=== PATIENT | female | born 1975 | race African-American/Black ===

== ENCOUNTER 2016-04-25 12:22 | Emergency (ER) | payer OTHER ==
[~2016-04-25] VITALS: Ht 177.8 cm; Wt 130.0 kg
[~2016-04-25 12:22] MED LIST: LOSA25TA31 PO; STOO100T PO; TAMO20TA4 PO
[2016-04-25 12:25] VITALS: BP 139/68; PULSE 110; RESP 12; TEMP 99.5; O2SAT 98
--- NOTE | 2016-04-25 13:39 | PD ---
HPI Chief Complaint: Pain: Acute or Chronic Time Seen by Provider: 13:39 Travel History International Travel<30 days: No Contact w/Intl Traveler<30days: No Traveled to known affect area: No History of Present Illness HPI 40-year-old female with history of hypertension and rest cancer, status post left mastectomy with reconstruction in 2014, presents to emergency department for evaluation of acute onset redness, swelling, and pain of the left breast noted last night. Patient states that she has felt febrile today and mildly nauseous. Denies any injury. Had an appointment with Dr. Zambrano, her oncologist today but felt that she needed more emergent attention due to the worsening, fevers, and pain. She has had no chest congestion. No other recent illnesses. Patient has no other symptoms at this time to report [facility] Past Medical History Anemia: Yes Blood Disorders: No Cancer: Yes (LEFT BREAST) Cardiovascular Problems: Yes (HEART MURMER) Diabetes: No Diminished Hearing: No Endocrine: No Genitourinary: No Hepatitis: No Hiatal Hernia: No Hypertension: Yes Immune Disorder: No Musculoskeletal: No Neurologic: No Psychiatric: No Reproductive: No Respiratory: No Radiation Therapy: No (FINISHED IN AUGUST OF LAST YEAR 2013, 28 TREATMENTS) Sickle Cell Disease: Yes (TRAIT) Thyroid Disease: No ?: Not : 2 Para: 2 Past Surgical History Abdominal Surgery: No AICD: No Body Medical Devices: IUD-PARAGUARD , RIGHT AND LEFT BREAST IMPLANTS Cardiac Surgery: No Section: Yes (X 1) Ear Surgery: No Endocrine Surgery: No Eye Surgery: No Genitourinary Surgery: No Gynecologic Surgery: Yes (C SECTION) Joint Replacement: No Neurologic Surgery: No Oral Surgery: No Pacemaker: No Thoracic Surgery: Yes (LEFT BREAST MASTECTOMY, R BREAST REDUCTION, L BREAST RECON.) Other Surgery: Yes Social History Alcohol Use: Yes (OCCASSIONAL) Tobacco Use: No (quit 16 years ago) Substance Use: No Allergies-Medications (Allergen,Severity, Reaction): Coded Allergies: Dilaudid (Verified Adverse Reaction, Severe, Nausea/Vomiting, 04/25/16) Reported Meds & Prescriptions Reported Meds & Active Scripts Active Clindamycin (Clindamycin HCl) 300 Mg Cap 300 Mg PO Q6H 10 Days Reported Tamoxifen (Tamoxifen Citrate) 20 Mg Tab 20 Mg PO BID Cozaar (Losartan Potassium) 50 Mg Tab 50 Mg PO DAILY Review of Systems Except as stated in HPI: all other systems reviewed are Neg Physical Exam Narrative GENERAL: Well-nourished female patient, sitting in bed, in no acute distress SKIN: Warm and dry. Scarring on the left breast status post vasectomy. There is a 10 cm diameter area of erythema superior to where the anatomical nipple would be that is taut, warm to touch, very tender. HEAD: Atraumatic. Normocephalic. EYES: Pupils equal and round. No scleral icterus. No injection or drainage. ENT: No nasal bleeding or discharge. Mucous membranes pink and moist. NECK: Trachea midline. No JVD. CARDIOVASCULAR: Tachycardic rate and rhythm. No murmur appreciated. RESPIRATORY: No accessory muscle use. Clear to auscultation. Breath sounds equal bilaterally. GASTROINTESTINAL: Abdomen soft, non-tender, nondistended. Hepatic and splenic margins not palpable. MUSCULOSKELETAL: No obvious deformities. No clubbing. No cyanosis. No edema. NEUROLOGICAL: Awake and alert. No obvious cranial nerve deficits. Motor grossly within normal limits. Normal speech. PSYCHIATRIC: Appropriate mood and affect; insight and judgment normal. Data Data Last Documented VS Vital Signs Date Time Temp Pulse Resp B/P Pulse Ox O2 Delivery O2 Flow Rate FiO2 04/25/16 17:00 94 16 127/68 99 Room Air 04/25/16 12:25 99.5 Orders Complete Blood Count With Diff (04/25/16 13:38) Comprehensive Metabolic Panel (04/25/16 13:38) Lactic Acid Sepsis Protocol (04/25/16 13:38) Ckmb (Isoenzyme) Profile (04/25/16 13:38) Troponin I (04/25/16 13:38) Urinalysis - C+S If Indicated (04/25/16 13:38) Blood Culture (04/25/16 13:38) Chest, Single Ap (04/25/16 13:38) Ondansetron Odt (Zofran Odt) (04/25/16 14:15) Urine Culture (04/25/16 14:12) Us Breast Unilateral (04/25/16 ) CKMB (04/25/16 14:12) CKMB% (04/25/16 14:12) Clindamycin Inj (Cleocin Inj) (04/25/16 16:45) Blood Culture (04/25/16 16:58) Labs Laboratory Tests Test 04/25/16 14:12 White Blood Count 16.4 TH/MM3 Red Blood Count 4.99 MIL/MM3 Hemoglobin 12.3 GM/DL Hematocrit 40.0 % Mean Corpuscular Volume 80.3 FL Mean Corpuscular Hemoglobin 24.7 PG Mean Corpuscular Hemoglobin 30.8 % Concent Red Cell Distribution Width 17.3 % Platelet Count 281 TH/MM3 Mean Platelet Volume 8.1 FL Neutrophils (%) (Auto) 86.3 % Lymphocytes (%) (Auto) 9.1 % Monocytes (%) (Auto) 4.1 % Eosinophils (%) (Auto) 0.2 % Basophils (%) (Auto) 0.3 % Neutrophils # (Auto) 14.1 TH/MM3 Lymphocytes # (Auto) 1.5 TH/MM3 Monocytes # (Auto) 0.7 TH/MM3 Eosinophils # (Auto) 0.0 TH/MM3 Basophils # (Auto) 0.0 TH/MM3 CBC Comment AUTO DIFF Differential Comment AUTO DIFF CONFIRMED Platelet Estimate NORMAL Platelet Morphology Comment NORMAL Ovalocytes 1+ Urine Color YELLOW Urine Turbidity HAZY Urine pH 5.5 Urine Specific [place] 1.018 Urine Protein NEG mg/dL Urine Glucose (UA) NEG mg/dL Urine Ketones NEG mg/dL Urine Occult Blood TRACE Urine Nitrite NEG Urine Bilirubin NEG Urine Urobilinogen LESS THAN 2.0 MG/DL Urine Leukocyte Esterase LARGE Urine RBC 2 /hpf Urine WBC 13 /hpf Urine Squamous Epithelial 4 /hpf Cells Urine Transitional Epithelial 1 /hpf Cells Urine Bacteria OCC /hpf Microscopic Urinalysis Comment CATH-CULTURE IND Sodium Level 139 MEQ/L Potassium Level 3.4 MEQ/L Chloride Level 108 MEQ/L Carbon Dioxide Level 22.9 MEQ/L Anion Gap 8 MEQ/L Blood Urea Nitrogen 9 MG/DL Creatinine 0.64 MG/DL Estimat Glomerular Filtration 124 ML/MIN Rate Random Glucose 92 MG/DL Lactic Acid Level 1.9 mmol/L Calcium Level 9.0 MG/DL Total Bilirubin 0.2 MG/DL Aspartate Amino Transf 8 U/L (AST/SGOT) Alanine Aminotransferase 18 U/L (ALT/SGPT) Alkaline Phosphatase 62 U/L Total Creatine Kinase 245 U/L Creatine Kinase MB LESS THAN 0.5 NG/ML Creatine Kinase MB % 0.2 % Troponin I LESS THAN 0.02 NG/ML Total Protein 8.0 GM/DL Albumin 4.1 GM/DL MDM Medical Decision Making Medical Screen Exam Complete: Yes Emergency Medical Condition: Yes Medical Record Reviewed: Yes Differential Diagnosis Abscess versus cellulitis versus malignancy versus sepsis Narrative Course 40 year-old female presents to emergency department for evaluation of her left breast. Patient has history of malignancy and is status post mastectomy and reconstruction. The left breast does have area of erythema that is taut and tender to touch. Patient is tachycardic with a low-grade temperature. Workup was initiated in triage. Once a medical bed becomes available, patient will be transferred and care assumed by that provider. Scripts Clindamycin 300 Mg Tat102 Mg PO Q6H 10 Days Ref 0 Prov:Tisha Joseph 04/25/16 Condition: Stable Megan Douglas Apr 25, 2016 13:39
[2016-04-25] MEDS ORDERED: ONDANSETRON ODT 4 MG TAB PO ONE (14:15)
[2016-04-25 14:20] LABS: AUTOMATED NEUTROPHIL # 14.1 TH/MM3 (1.8-7.7); BASOPHIL % 0.3 % (0.0-2.0); EOSINOPHIL % 0.2 % (0.0-4.0); LYMPH % 9.1 % (9.0-44.0); LYMPHOCYTE # 1.5 TH/MM3 (1.0-4.8); MEAN CELL VOLUME 80.3 FL (80.0-100.0); MEAN CORPUSCULAR HEMOGLOBIN 24.7 PG (27.0-34.0); MEAN CORPUSCULAR HGB CONC 30.8 % (32.0-36.0); MONO % 4.1 % (0.0-8.0); NEUT % 86.3 % (16.0-70.0); PLATELET COUNT 281 TH/MM3 (150-450); RED BLOOD COUNT 4.99 MIL/MM3 (4.00-5.30); RED CELL DISTRIBUTION WIDTH 17.3 % (11.6-17.2); WHITE BLOOD COUNT 16.4 TH/MM3 (4.0-11.0)
[2016-04-25 14:21] LABS: HEMO FLAGS AUTO DIFF
[2016-04-25 14:23] LABS: BACTERIA, URINE OCC /hpf; BLOOD, URINE TRACE (NEG); GLUCOSE,URINE NEG (NEG); KETONE, URINE NEG (NEG); NITRITE,URINE NEG (NEG); PH, URINE 5.5 (5.0-8.5); SQUAMOUS EPITHELIAL CELL URINE 4 /hpf (0-5); TRANSITIONAL EPI CELLS, URINE 1 /hpf; URINE COLOR YELLOW (YELLW/STRAW)
[2016-04-25 14:24] LABS: COMMENT (UR) CATH-CULTURE IND; CULTURE IF INDICATED CATH CULTURE IND
[2016-04-25 14:30] VITALS: BP 135/65; PULSE 98; RESP 16; O2SAT 99
--- NOTE | 2016-04-25 14:30 | RADRPT ---
EXAM DATE/TIME: 04/25/2016 14:15 [facility] COMPARISON: CHEST SINGLE AP, December 07, 2013, 19:10. INDICATIONS : Fever, pain left anterior chest, nausea MEDICAL HISTORY : Carcinoma, breast. SURGICAL HISTORY : Mastectomy, left. section. ENCOUNTER: Initial ACUITY: 1 day PAIN SCORE: 5/10 LOCATION: Left chest FINDINGS: A single view of the chest demonstrates the lungs to be symmetrically aerated without evidence of mas s, infiltrate or effusion. The cardiomediastinal contours are unremarkable. Osseous structures are intact. CONCLUSION: Normal examination. Manolo Bahena MD on April 25, 2016 at 14:29 Board Certified Radiologist. This report was verified electronically.
[2016-04-25 14:37] LABS: ALT (GPT) 18 U/L (10-53); ANION GAP 8 MEQ/L (5-15); AST (GOT) 8 U/L (15-37); BICARBONATE 22.9 MEQ/L (21.0-32.0); CHLORIDE 108 MEQ/L (98-107); GLOMERULAR FILTRATION RATE 124 ML/MIN (>89); POTASSIUM 3.4 MEQ/L (3.5-5.1); SODIUM (NA) 139 MEQ/L (136-145)
[2016-04-25] MEDS ORDERED: COZA50TA PO (14:37)
[2016-04-25] MEDS ORDERED: TAMO20TA6 PO (14:37)
[2016-04-25 14:38] LABS: BLOOD UREA NITROGEN 9 MG/DL (7-18)
[2016-04-25 14:40] LABS: ALKALINE PHOSPHATASE 62 U/L (45-117); CREATINE KINASE 245 U/L (26-192); TOTAL BILIRUBIN ADULT 0.2 MG/DL (0.2-1.0)
--- NOTE | 2016-04-25 14:47 | PD ---
Physical Exam Date Seen by Provider: Apr 25, 2016 Time Seen by Provider: 14:42 Narrative 40-year-old female presents to the emergency department for evaluation of left breast pain and erythema that started this morning. She has also felt chills. Low-grade fever. Patient reports history of left breast cancer. She had a mastectomy done in February 2013 with reconstruction [place] [address] Payan. She takes tamoxifen and still follows up with her oncologist, Dr. Zambrano. She reports that this morning she woke up with left breast pain and erythema. She states this happened back in December and she had to be admitted with IV antibiotics. Patient also reports a history of hypertension and is currently on losartan. She denies any chest pain or other complaints. GENERAL: Well-developed well-nourished female patient, ambulatory. Temp of 99.5 79.5. SKIN: Warm and dry. Patient has erythema noted to the left breast which is thought and slightly tender to palpation. No obvious fluctuance. HEAD: Normocephalic. Atraumatic. EYES: No scleral icterus. No injection or drainage. NECK: Supple, trachea midline. No JVD or lymphadenopathy. CARDIOVASCULAR: Regular rate and rhythm without murmurs, gallops, or rubs. RESPIRATORY: Breath sounds equal bilaterally. No accessory muscle use. Lungs sounds are clear to auscultation. GASTROINTESTINAL: Abdomen soft, non-tender, nondistended. MUSCULOSKELETAL: No cyanosis, or edema. BACK: Nontender without obvious deformity. No CVA tenderness. Data Data Last Documented VS Vital Signs Date Time Temp Pulse Resp B/P Pulse Ox O2 Delivery O2 Flow Rate FiO2 04/25/16 14:30 98 16 135/65 99 Room Air 04/25/16 12:25 99.5 Orders Electrocardiogram (04/25/16 13:38) Complete Blood Count With Diff (04/25/16 13:38) Comprehensive Metabolic Panel (04/25/16 13:38) Lactic Acid Sepsis Protocol (04/25/16 13:38) Ckmb (Isoenzyme) Profile (04/25/16 13:38) Troponin I (04/25/16 13:38) Urinalysis - C+S If Indicated (04/25/16 13:38) Chest, Single Ap (04/25/16 13:38) Ondansetron Odt (Zofran Odt) (04/25/16 14:15) Urine Culture (04/25/16 14:12) Us Breast Unilateral (04/25/16 ) CKMB (04/25/16 14:12) CKMB% (04/25/16 14:12) Clindamycin Inj (Cleocin Inj) (04/25/16 16:45) Blood Culture (04/25/16 16:58) Labs Laboratory Tests Test 04/25/16 14:12 White Blood Count 16.4 TH/MM3 Red Blood Count 4.99 MIL/MM3 Hemoglobin 12.3 GM/DL Hematocrit 40.0 % Mean Corpuscular Volume 80.3 FL Mean Corpuscular Hemoglobin 24.7 PG Mean Corpuscular Hemoglobin 30.8 % Concent Red Cell Distribution Width 17.3 % Platelet Count 281 TH/MM3 Mean Platelet Volume 8.1 FL Neutrophils (%) (Auto) 86.3 % Lymphocytes (%) (Auto) 9.1 % Monocytes (%) (Auto) 4.1 % Eosinophils (%) (Auto) 0.2 % Basophils (%) (Auto) 0.3 % Neutrophils # (Auto) 14.1 TH/MM3 Lymphocytes # (Auto) 1.5 TH/MM3 Monocytes # (Auto) 0.7 TH/MM3 Eosinophils # (Auto) 0.0 TH/MM3 Basophils # (Auto) 0.0 TH/MM3 CBC Comment AUTO DIFF Differential Comment AUTO DIFF CONFIRMED Platelet Estimate NORMAL Platelet Morphology Comment NORMAL Ovalocytes 1+ Urine Color YELLOW Urine Turbidity HAZY Urine pH 5.5 Urine Specific [place] 1.018 Urine Protein NEG mg/dL Urine Glucose (UA) NEG mg/dL Urine Ketones NEG mg/dL Urine Occult Blood TRACE Urine Nitrite NEG Urine Bilirubin NEG Urine Urobilinogen LESS THAN 2.0 MG/DL Urine Leukocyte Esterase LARGE Urine RBC 2 /hpf Urine WBC 13 /hpf Urine Squamous Epithelial 4 /hpf Cells Urine Transitional Epithelial 1 /hpf Cells Urine Bacteria OCC /hpf Microscopic Urinalysis Comment CATH-CULTURE IND Sodium Level 139 MEQ/L Potassium Level 3.4 MEQ/L Chloride Level 108 MEQ/L Carbon Dioxide Level 22.9 MEQ/L Anion Gap 8 MEQ/L Blood Urea Nitrogen 9 MG/DL Creatinine 0.64 MG/DL Estimat Glomerular Filtration 124 ML/MIN Rate Random Glucose 92 MG/DL Lactic Acid Level 1.9 mmol/L Calcium Level 9.0 MG/DL Total Bilirubin 0.2 MG/DL Aspartate Amino Transf 8 U/L (AST/SGOT) Alanine Aminotransferase 18 U/L (ALT/SGPT) Alkaline Phosphatase 62 U/L Total Creatine Kinase 245 U/L Creatine Kinase MB LESS THAN 0.5 NG/ML Creatine Kinase MB % 0.2 % Troponin I LESS THAN 0.02 NG/ML Total Protein 8.0 GM/DL Albumin 4.1 GM/DL [facility] Medical Record Reviewed: Yes Supervised Visit with CECI: No Interpretation(s) Last Impressions Chest X-Ray 04/25/16 1338 Signed Impressions: Service Date/Time: Monday, April 25, 2016 14:15 - CONCLUSION: Normal examination. Manolo Bahena MD Breast Ultrasound 04/25/16 0000 Signed Impressions: Service Date/Time: Monday, April 25, 2016 15:25 - CONCLUSION: No loculated fluid collections are demonstrated to indicate an abscess. Milind Pressley MD Differential Diagnosis Cellulitis versus abscess versus sepsis Narrative Course 40-year-old female presents to the emergency department for evaluation of left breast infection that started this morning. She has a history of the same after mastectomy and reconstruction. Patient does state the left breast is chronically taut from previous surgeries. Workup was initiated triage by PERICO Momin. CBC, CMP, PTT, PTT/INR, lactic acid, CK, troponin, UA, chest x-ray were ordered in triage and are pending. Ultrasound of the left breast is ordered and pending. CBC shows leukocytosis of 16.1, neutrophilia 86.3. CMP shows slight hypokalemia of 3.4. CK is 245. Troponin is less than 0.02. Lactic acid is 1.9. UA shows large leukocyte esterase, 13 WBC. Chest x-ray is normal. Ultrasound of the left breast shows No loculated fluid collections are demonstrated to indicate an abscess. I did contact the patient's surgeon, Dr. Payan. However, I was unable to get a hold of him. I discussed the case with attending physician, Dr. Meraz, recommended dose of IV clindamycin and outpatient trial on clindamycin. She is instructed to follow-up with Dr. Payan.. She is to return immediately for any worsening of symptoms. The patient is agreeable to this plan. Diagnosis Primary Impression: Cellulitis of breast Referrals: Alli Payan MD call for appointment Patient Instructions: Cellulitis (ED), General Instructions Departure Forms: Tests/Procedures, Work Release Enter return to work date: Apr 28, 2016 Additional Instruction: Take antibiotic as instructed until gone. Follow up with Dr. Payan. Return for any acute, worsening of symptoms. Med/Other Pt SpecificInfo: Prescription(s) given Scripts Clindamycin 300 Mg [id number] Mg PO Q6H 10 Days Ref 0 Prov:Tisha Joseph 04/25/16 Disposition: 01 DISCHARGE HOME Condition: Stable Tisha Joseph Apr 25, 2016 14:47
[2016-04-25 14:56] LABS: CKMB LESS THAN 0.5 NG/ML (0.5-3.6)
[2016-04-25 14:58] LABS: OVALOCYTES 1+ (NORMAL)
[2016-04-25 14:59] LABS: PLATELET ESTIMATE SMEAR NORMAL (NORMAL); PLATELET MORPHOLOGY NORMAL (NORMAL); SCAN/DIFF AUTO DIFF CONFIRMED
--- NOTE | 2016-04-25 15:54 | RADRPT ---
EXAM DATE/TIME: 04/25/2016 15:25 [facility] COMPARISON: US BREAST LEFT, January 18, 2015, 18:25. EXTERNAL COMPARISON : [facility], MAMMOGRAM, SCREENING, January 31, 2016, April 30, 2014. INDICATIONS : Abscess. MEDICAL HISTORY : Hypertension. Sickle Cell disease. Heart murmur. Anemia. Left breast cancer. SURGICAL HISTORY : section. Left breast biopsy. Left breast mastectomy. Left breast reconstruction; latissi mus dorsi flap placement. Right breast reduction. Right breast silicone augmentation. Radiation thera py. ENCOUNTER: Initial ACUITY: 1 day PAIN SCORE: 4/10 LOCATION: Left breast. FINDINGS: Focused ultrasound of the left breast was performed. There is an implant in place. There is no eviden ce of any loculated fluid collections to suggest an abscess. The previously noted irregular fluid col lection on the prior study has resolved. There is some nonspecific edema in the soft tissues. Otherwi se the breast tissue is unremarkable on this focused study. CONCLUSION: No loculated fluid collections are demonstrated to indicate an abscess. Milind Pressley MD on April 25, 2016 at 15:51 Board Certified Radiologist. This report was verified electronically.
[2016-04-25] MEDS ORDERED: CLINDAMYCIN INJ 600 MG in SODIUM CHLORIDE 0.9% INJ 100 ML IV ONE (16:45)
[2016-04-25 17:00] VITALS: BP 127/68; PULSE 94; RESP 16; O2SAT 99
[2016-04-25] MEDS ORDERED: CLIN1CAP6 PO (17:06)
== END 2016-04-25 18:44 | disposition home or self-care (01) ==
LOC: NEPA 12:22
DX: N61.0 Mastitis without abscess (principal); I10 Essential (primary) hypertension; R11.0 Nausea; R00.0 Tachycardia, unspecified; Z85.3 Personal history of malignant neoplasm of breast; Z90.12 Acquired absence of left breast and nipple; Z87.891 Personal history of nicotine dependence
CPT/HCPCS: 71010; 76642; 80053; 81001; 82550; 82552; 83605; 84484; 85025; 87040; 87086; 87205; 96365

== ENCOUNTER 2016-05-03 11:19 | Inpatient (IN) | payer OTHER ==
[~2016-05-03] VITALS: Ht 177.8 cm; Wt 119.0 kg
[~2016-05-03 11:19] MED LIST changes: +CLIN1CAP6 PO; +COZA50TA PO; -LOSA25TA31 PO; -STOO100T PO; -TAMO20TA4 PO; +TAMO20TA6 PO
[2016-05-03] MEDS ORDERED: NEOSTIGMINE 3 MG/3 ML SYR IV ONE (11:28)
[2016-05-03] MEDS ORDERED: PROPOFOL 200 MG/20 ML AMP IV ONE (11:28)
[2016-05-03] MEDS ORDERED: ONDANSETRON HCL 4 MG/2 ML VIAL IV PUSH ONE (11:28)
[2016-05-03] MEDS ORDERED: LACTATED RINGER'S 1000 ML INJ 1,000 ML IV ONE (11:28)
[2016-05-03] MEDS ORDERED: INSULIN HUMAN REGULAR 1,000 UNITS/10 ML VIAL SQ PRN (12:00)
[2016-05-03] MEDS: LACTATED RINGER'S 1000 ML IV SCH (12:00)
[2016-05-03] MEDS: SODIUM CHLORID 0.9% 500 ML IV SCH (12:00)
[2016-05-03] MEDS ORDERED: METOPROLOL TARTRATE 25 MG TAB PO PRN (12:00)
[2016-05-03] MEDS ORDERED: ceFAZolin 1,000 MG/NS 100 ML IV SCH ×2 (12:00)
[2016-05-03 12:12] VITALS: BP 151/81; PULSE 76; RESP 20; TEMP 97; O2SAT 97
[2016-05-03] MEDS ORDERED: MIDAZOLAM HCL 2 MG/2 ML VIAL ONE (13:25)
[2016-05-03] MEDS ORDERED: FAMOTIDINE 20 MG/2 ML VIAL ONE (13:25)
[2016-05-03] MEDS ORDERED: fentaNYL CITRATE 250 MCG/5 ML AMP ONE (13:25)
[2016-05-03] MEDS ORDERED: ACETAMINOPHEN 1000 MG/100 ML VIAL IV ONE (13:27)
[2016-05-03] MEDS ORDERED: SODIUM BICARBONATE 8.4% INJ 50 MEQ/50 ML SYR ONE (13:45)
[2016-05-03] MEDS ORDERED: LIDOCAINE 1%/EPINEPHrine 1:100,000 SOLN 30 ML VIAL ONE (13:45)
[2016-05-03] MEDS ORDERED: BUPIVACAINE/EPINEPHRINE 0.5% PF 30 ML VIAL ONE (13:45)
[2016-05-03] MEDS ORDERED: HEPARIN SODIUM - IV 10,000 UNITS/10 ML VIAL ONE (13:46)
[2016-05-03] MEDS ORDERED: BUPIVACAINE/EPINEPHRINE 0.5% PF 30 ML VIAL INFIL ONE (14:26)
[2016-05-03] MEDS ORDERED: oxyCODONE/ACETAMINOPHEN 5 MG/325 MG TAB PO PRN (15:15)
[2016-05-03] MEDS ORDERED: SODIUM CHLORIDE 0.9% FLUSH 5 ML FLUSH IV FLUSH PRN (15:15)
[2016-05-03] MEDS ORDERED: *morphine SULFATE 8 MG/ML PERIprocedure ONLY ONE ×2 (15:15→15:58)
--- NOTE | 2016-05-03 15:18 | HHI.PR ---
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
[2016-05-03] MEDS ORDERED: METOCLOPRAMIDE HCL 10 MG/2 ML VIAL IV PRN (16:00)
[2016-05-03] MEDS: LEVOFLOXACIN 500 MG PREMIX INJ 100 ML IV SCH (16:00)
[2016-05-03] MEDS: oxyCODONE/ACETAMINOPHEN 10 MG/325 MG TAB PO PRN ×2 (17:08→22:06)
[2016-05-03] MEDS ORDERED: DO NOT ADM ANY ANTICOAGULANT DRUGS XX PRN (17:15)
[2016-05-03 18:13] VITALS: BP 141/72; PULSE 74; RESP 18; TEMP 98.3; O2SAT 98
[2016-05-03] MEDS: MORPHINE SULFATE 4 MG/ML INJ IV PRN ×2 (18:24→23:49)
[2016-05-03 20:00] VITALS: BP 140/79; PULSE 77; RESP 16; TEMP 98.6; O2SAT 99
[2016-05-03] MEDS: TAMOXIFEN CITRATE 10 MG TAB PO SCH (22:06)
[2016-05-03] MEDS: SODIUM CHLORIDE 0.9% FLUSH 5 ML FLUSH IV FLUSH SCH (22:06)
[2016-05-04] VITALS (8 sets, daily range): BP systolic 137–144; BP diastolic 67–83; PULSE 62–86; RESP 16–20; TEMP 97–98.2; O2SAT 96–98
[2016-05-04] MEDS: oxyCODONE/ACETAMINOPHEN 10 MG/325 MG TAB PO PRN ×3 (04:40→19:14)
[2016-05-04] MEDS: SODIUM CHLORID 0.9% 500 ML IV SCH (04:40)
[2016-05-04] MEDS ORDERED: diphenhydrAMINE HCL 25 MG CAP PO ONE (04:45)
[2016-05-04] MEDS: TAMOXIFEN CITRATE 10 MG TAB PO SCH ×2 (08:50→21:14)
[2016-05-04] MEDS: LOSARTAN 50 MG TAB PO SCH (08:50)
[2016-05-04] MEDS: SODIUM CHLORIDE 0.9% FLUSH 5 ML FLUSH IV FLUSH SCH ×2 (08:50→21:14)
--- NOTE | 2016-05-04 09:09 | MP ---
cc: JOSÉ BECKFORD M.D., JOSEPH D. M.D. DATE OF SURGERY 05/03/2016 PREOPERATIVE DIAGNOSIS Cellulitis left chest wall from previous breast reconstruction. POSTOPERATIVE DIAGNOSIS Infected breast implant with cellulitis of the left breast and chest wall. PROCEDURE 1. Incision and drainage of breast reconstructive abscess with removal of infected implant. 2. Biopsy of skin and subcutaneous tissue to rule out recurrent malignancy. 3. Breast biopsy to rule out recurrent malignancy. 4. Placement of VAC dressing device. ANESTHESIA General. SURGEON Dr. Lewis. INDICATIONS This is a pleasant female who about three years ago had left-sided breast cancer, underwent a mastectomy and reconstruction, had some complications with that requiring a latissimus flap. She subsequently had about a week's worth of increasing redness and firmness to the left breast after which she presented to me as the plastic surgeon was no longer available. Plans were made for above. PROCEDURE The patient was taken to the operating room, placed in supine position after anesthesia. Her left breast and chest were prepped with Betadine. We made an incision at an old incision around an old nipple-areolar complex where it was very edematous, swollen and erythematous. Just under the skin there is purulent material that returns; this is cultured and it is involving the implant as well. The incision is elongated to accommodate the removal of the infected implant. Some of the skin and subcutaneous tissue was removed for pathological analysis because of her history of breast cancer. The breast capsule was removed of purulent material and purulent tissue that appears to be somewhat necrotic. This is irrigated copiously with a liter of saline. We then placed a VALENTINE in the empty space and void where the breast implant was located. A small VAC sponge is then placed and connected to the device in the typical fashion. We placed it to suction. I will place a consultation to Plastic Surgery to aid in the management of this complex case. I have talked to the by phone about the operative findings. Anshul Lewis MD JDB/SSB /3:26 PM /8:56 AM
[2016-05-04] MEDS: MORPHINE SULFATE 4 MG/ML INJ IV PRN ×2 (12:37→20:42)
[2016-05-04] MEDS: LEVOFLOXACIN 500 MG PREMIX INJ 100 ML IV SCH (17:23)
--- NOTE | 2016-05-04 17:51 | HHI.PR ---
Subjective Subjective Notes DAILY PROGRESS NOTE FOR SURGICAL ATTENDING, DR. IZZY LEWIS Feels better VAC in place Objective Vitals/I&O Vital Signs Date Time Temp Pulse Resp B/P Pulse Ox O2 Delivery O2 Flow Rate FiO2 05/04/16 17:33 96 21 05/04/16 15:42 98.1 68 20 144/83 05/03/16 16:30 Room Air Labs Date/Time Procedure Status Source Growth 05/03/16 14:45 Gram Stain - Final Resulted Wound Breast 05/03/16 14:45 Wound Culture - Preliminary Resulted Staphylococcus Aureus Narrative Exam Left breast with VAC in place Minimal drainage Plastic surgery consultation A/P Problem List: (1) Personal history of malignant neoplasm of breast (2) Cellulitis of breast (3) Chest wall abscess (4) Complication of internal breast prosthesis (5) History of breast cancer in female Assessment and Plan DAILY PROGRESS NOTE FOR SURGICAL ATTENDING, DR. IZZY LEWIS 40-year-old female with a history of breast cancer 3 years ago requiring a mastectomy. Unfortunately she had an infection in the implant. She's had a latissimus flap in the past. Presently she is being treated to control this infection along the chest wall. Reconstructions as per plastic surgery Izzy Lewis MD May 04, 2016 17:51
--- NOTE | 2016-05-04 22:13 | RADRPT ---
EXAM DATE/TIME: 05/04/2016 20:54 [facility] COMPARISON: No previous studies available for comparison. INDICATIONS : Recent infection with mastectomy and reconstruction; evaluate for seroma. RADIATION DOSE: 9.59 CTDIvol (mGy) MEDICAL HISTORY : Hypertension. Carcinoma, breast. Sickle cell. SURGICAL HISTORY : Mastectomy, left. Right breast augmentation. ENCOUNTER: Initial ACUITY: 2 weeks PAIN SCALE: 3/10 LOCATION: chest TECHNIQUE: Volumetric scanning of the chest was performed. Using automated exposure control and adjustment of t he mA and/or kV according to patient size, radiation dose was kept as low as reasonably achievable to obtain optimal diagnostic quality images. FINDINGS: There are postoperative changes from left mastectomy and reconstruction. There is an open breast wound with a drain in the left breast. There is a probable seroma measuring u p to about 6.6 cm in transverse diameter and 3.5 cm in AP diameter. This is below the level of the dr lyle. There is a right breast implant. There is linear scarring at the lung bases. No pleural or pericardial effusion. No adenopathy within the chest. No axillary adenopathy. No acute findings in the upper abdomen. Calcified gallstones in the gallbladder. No acute bony abnorm ality. CONCLUSION: 1. Postoperative left mastectomy with reconstruction. Open wound present with drain in soft tissues. Probable complex seroma just below the drain with measurements given above. Anshul Claros MD on May 04, 2016 at 22:08 Board Certified Radiologist. This report was verified electronically.
[2016-05-05] VITALS: BP 159/74; PULSE 72; RESP 16; TEMP 95.9; O2SAT 98
[2016-05-05 04:00] VITALS: BP 142/73; PULSE 75; RESP 16; TEMP 97.4; O2SAT 97
[2016-05-05] MEDS: oxyCODONE/ACETAMINOPHEN 10 MG/325 MG TAB PO PRN (05:58)
[2016-05-05 07:22] LABS: AUTOMATED NEUTROPHIL # 5.7 TH/MM3 (1.8-7.7); BASOPHIL % 0.3 % (0.0-2.0); EOSINOPHIL # 0.3 TH/MM3 (0-0.4); EOSINOPHIL % 3.8 % (0.0-4.0); HEMO FLAGS DIFF FINAL; LYMPH % 25.5 % (9.0-44.0); LYMPHOCYTE # 2.3 TH/MM3 (1.0-4.8); MEAN CELL VOLUME 78.5 FL (80.0-100.0); MEAN CORPUSCULAR HEMOGLOBIN 25.2 PG (27.0-34.0); MEAN CORPUSCULAR HGB CONC 32.1 % (32.0-36.0); MONO % 6.1 % (0.0-8.0); NEUT % 64.3 % (16.0-70.0); PLATELET COUNT 380 TH/MM3 (150-450); RED BLOOD COUNT 4.08 MIL/MM3 (4.00-5.30); WHITE BLOOD COUNT 8.8 TH/MM3 (4.0-11.0)
[2016-05-05] MEDS: MORPHINE SULFATE 4 MG/ML INJ IV PRN ×2 (07:40→18:27)
[2016-05-05 08:00] VITALS: BP 144/81; PULSE 78; RESP 20; TEMP 98.4; O2SAT 98
--- NOTE | 2016-05-05 08:13 | MB ---
cc: AWILDA GORE M.D. DATE OF CONSULTATION 05/04/2016 REFERRING PHYSICIAN The patient is being seen at the request of Dr. Lewis. REASON FOR CONSULTATION Infected breast wound after reconstruction. HISTORY OF PRESENT ILLNESS The patient is a 40-year-old female who came went through same-day surgery yesterday where an infected left breast prosthesis was removed. The patient's history goes back to 2012 when she had a mastectomy in February of the year. She then underwent immediate reconstruction. The patient has had several problems and has had several operations since then with infections on and off. The patient went to see Dr. Lewis who noted that she had abscess and removed the implant yesterday and placed a wound Vac into the wound. Consultation is requested regarding evaluation and treatment of the wound. The patient today says she feels much better and is able to ambulate and has no significant pain. Her white count on the 25 of April was 16.4 and white count on the was 11.4. I do not believe there has been any other white count's drawn. PHYSICAL EXAM On examination, the patient is sitting comfortably in bed. HEAD, EYES, EARS, NOSE, AND THROAT: Her extraocular muscles are intact. Pupils are equal, round and reactive to light. Her mouth is clear. NECK: Supple without masses. LUNGS: Clear. HEART: Her heart has a regular rate and rhythm. CHEST: Examination of her chest wall reveals no evidence of redness or swelling on the dorsal aspect of the chest. The breast has been reconstructed, is soft, has no significant cellulitis. There is a wound Vac in place. The latissimus dorsi flap is well-perfused. There is a wound in the medial aspect of the breast reconstruction which has the wound Vac emerging. EXTREMITIES: Within normal limits. IMPRESSION The patient is status post removal of infected implant. PLAN The patient will be taken back to the operating room tomorrow for changing the wound Vac or removal and placing a drain. It is anticipated that the patient should be able to be discharged soon after that based on her condition. The patient understands and accepts the risks and complications of the procedure. MD JIMMY Driver/REBECCA /4:44 PM /7:56 AM
[2016-05-05] MEDS: LOSARTAN 50 MG TAB PO SCH (08:31)
[2016-05-05] MEDS: TAMOXIFEN CITRATE 10 MG TAB PO SCH (08:31)
[2016-05-05] MEDS: SODIUM CHLORIDE 0.9% FLUSH 5 ML FLUSH IV FLUSH SCH (08:33)
[2016-05-05] MEDS: LACTATED RINGER'S 1000 ML IV SCH (09:35)
[2016-05-05] MEDS ORDERED: DEXAMETHASONE SOD PHOS 4 MG/ML VIAL ONE (10:21)
[2016-05-05] MEDS ORDERED: ACETAMINOPHEN 1000 MG/100 ML VIAL IV ONE (10:21)
[2016-05-05] MEDS ORDERED: FAMOTIDINE 20 MG/2 ML VIAL ONE (10:21)
[2016-05-05] MEDS ORDERED: ONDANSETRON HCL 4 MG/2 ML VIAL ONE (10:24)
[2016-05-05] MEDS ORDERED: fentaNYL CITRATE 250 MCG/5 ML AMP ONE (10:24)
[2016-05-05] MEDS ORDERED: MIDAZOLAM HCL 2 MG/2 ML VIAL ONE (10:32)
[2016-05-05] MEDS ORDERED: PROPOFOL 200 MG/20 ML AMP IV ONE (12:00)
[2016-05-05] MEDS ORDERED: DO NOT ADM ANY ANTICOAGULANT DRUGS XX PRN (12:12)
[2016-05-05] MEDS ORDERED: DEXT 5%-NACL 0.45% 1000 ML INJ 1,000 ML IV SCH (12:17)
--- NOTE | 2016-05-05 12:27 | HHI.PR ---
Immediate Post Op Note Procedure Date: May 05, 2016 Pre Op Diagnosis: (1) Cellulitis of breast Post Op Diagnosis: (1) Cellulitis of breast (2) Complication of internal breast prosthesis Surgeon: Rola Russo Consumer Services Consultant(s): None Procedure: Excisional debridement of capsule of reconstructed left breast. Specimen(s) removed: Capsular tissue Estimated blood loss: 50 mL Anesthesia: General Drains: None Patient to: PACU Patient Condition: Good Date/Time of Procedure: SEE SURGICAL CARE RECORD Rola Russo MD May 05, 2016 12:27
[2016-05-05] MEDS ORDERED: SODIUM CHLORIDE 0.9% FLUSH 5 ML FLUSH IVF PRN (12:30)
[2016-05-05] MEDS ORDERED: *morphine SULFATE 8 MG/ML PERIprocedure ONLY ONE (12:47)
[2016-05-05] MEDS ORDERED: OXYC1TAB36 PO (15:07)
[2016-05-05] MEDS ORDERED: CEPH-460 PO (15:07)
--- NOTE | 2016-05-05 15:14 | HHI.DS ---
Discharge Summary Admission Date May 04, 2016 at 15:50 Discharge Date: May 05, 2016 Admitting Diagnosis Left breast abscess with infection of the breast implant status post breast reconstruction for breast cancer (1) Personal history of malignant neoplasm of breast Diagnosis: Principal (2) Cellulitis of breast Diagnosis: Principal (3) Chest wall abscess Diagnosis: Principal (4) Complication of internal breast prosthesis Diagnosis: Principal (5) History of breast cancer in female Diagnosis: Principal Procedures I&D of left breast reconstructive abscess Removal of breast implant next application of VAC device [address] Russo removed the VAC device and did open packing to the open wound to left chest wall CBC/BMP: 05/05/16 0630 Significant Findings Laboratory Tests Test 05/05/16 06:30 Hemoglobin 10.3 GM/DL (11.6-15.3) Hematocrit 32.0 % (35.0-46.0) Mean Corpuscular Volume 78.5 FL (80.0-100.0) Mean Corpuscular Hemoglobin 25.2 PG (27.0-34.0) Imaging Last Impressions Chest CT 05/04/16 0000 Signed Impressions: Service Date/Time: April 20:54 - CONCLUSION: 1. Postoperative left mastectomy with reconstruction. Open wound present with drain in soft tissues. Probable complex seroma just below the drain with measurements given above. Anshul Claros MD PE at Discharge Left breast with VAC in place Minimal drainage Plastic surgery consultation Hospital Course Patient underwent I&D of a left breast abscess after reconstruction a few years back for breast cancer when she had a mastectomy. Her implant was involved in infection and this was removed. We consult with plastic surgery to aid in managing this difficult problem Dr. Russo saw her and is planning to see her as a follow-up to monitor this wound and get plastic surgery involved to fill in the defect Pt Condition on Discharge: Good Discharge Disposition: Disch w/ Home Health Serv Discharge Instructions DIET: Follow Instructions for: As Tolerated, No Restrictions Activities you can perform: Regular-No Restrictions Activities to Avoid: Driving for 24 hrs Follow up Referrals: Appointment for Follow Up with [facility]so hand surgery New Medications: Cephalexin (Keflex) 500 Mg Cap 500 MG PO Q6H Infection Days 10 Ref 0 CAP Oxycodone-Acetaminophen (Oxycodone-Acetaminophen) 10-325 mg Tab 1 TAB PO Q4H PRN PAIN SCALE 6 TO 10 #30 TAB Continued Medications: Losartan (Cozaar) 50 Mg Tab 50 MG PO DAILY Blood Pressure Management #30 Ref 0 TAB Tamoxifen (Tamoxifen) 20 Mg Tab 20 MG PO BID Chemotherapy Management #60 Ref 0 TAB Anshul Lewis MD May 05, 2016 15:14
--- NOTE | 2016-05-05 15:17 | HHI.FF ---
Face to Face Verification Diagnosis: (1) HTN (hypertension), benign (2) Breast hypertrophy in female (3) Acquired absence of left breast and nipple (4) Personal history of malignant neoplasm of breast (5) History of breast cancer in female (6) Cellulitis of breast (7) Chest wall abscess (8) Complication of internal breast prosthesis Physical Therapy Order: Evaluate and Treat Home Health Nursing Order: Medical education Signs/symptoms of disease process Wound care and dressing changes I have seen patient Julieta Sarah on 05/05/16. My clinical findings support the need for the requested home health care services because: Infection w/ risk of complications I certify that my clinical findings support that this patient is homebound because: Post-op weakness Anshul Lewis MD May 05, 2016 15:17
[2016-05-05 16:00] VITALS: BP 121/74; PULSE 84; RESP 20; TEMP 98.9; O2SAT 96
[2016-05-05] MEDS: LEVOFLOXACIN 500 MG PREMIX INJ 100 ML IV SCH (18:00)
[2016-05-05] MEDS ORDERED: SODIUM CHLORIDE 0.9% FLUSH 5 ML FLUSH IVF SCH (21:00)
--- NOTE | 2016-05-08 11:01 | MP ---
cc: AWILDA GORE M.D. DATE OF SURGERY: 05/05/2016 PREOPERATIVE DIAGNOSIS 1. Cellulitis of left reconstructed breast. 2. Complication of internal breast prosthesis. POSTOPERATIVE DIAGNOSIS 1. Cellulitis of left reconstructed breast. 2. Complication of internal breast prosthesis. PROCEDURE Excisional debridement of capsule of reconstructed left breast. ANESTHESIA General. SURGEON Dr. Gore. INDICATIONS A 40-year-old female with history of breast reconstruction from cancer after mastectomy of the left breast. FINDINGS The patient had significant amount of capsule tissue which appeared to be somewhat necrotic or partially necrotic. At the completion of the procedure the capsule tissue was removed and the pocket looked clean. Operative time was 45 minutes. PROCEDURE The patient was seen preoperatively where the site and side were identified and marked. The patient was then taken to the operating room, placed in the supine position. Her identity was checked against the arm band and the consent form, site and side confirmed, time-out called prior to beginning the procedure. The left reconstructed breast was prepped with Betadine and draped in usual sterile fashion. The wound vac was removed prior to prepping. There was a large pocket which was irrigated with saline. It was then inspected under lighted loupe magnification and the capsule tissue was identified and removed and sent off for pathologic specimen. A curette and rongeur were used at different times to remove all of the capsule of tissue which appeared to be involved. Once there was good tissue which appeared healthy, the wound was copiously irrigated with saline and dilute solution of Betadine solution within it. It was then packed with 2-inch iodoform packing. A dressing was applied using Telfa, 4x4s and a semipermeable plastic dressing. The patient was then taken from the operating room to the recovery room in satisfactory condition having tolerated the procedure well. Postoperative instructions include daily wound care. The patient will be cleared for discharge today if cleared with Dr. Lewis to be followed by my clinic next week. MD JIMMY Driver/MAGY /12:30 PM /10:46 AM
== END 2016-05-05 19:35 | disposition home or self-care (01) | DRG 908 ==
LOC: HSDC 11:19 → HSDI 15:09 → HOCB 17:48 → OBSVTOIN 05-04 15:50
PROVIDERS: ADMIT Surgery; ATTEND Surgery
PROC: 0HPU0JZ Removal of Synthetic Substitute from Left Breast, Open Approach (ICD-10-PCS; 2016-05-03)
PROC: 0HBU0ZX Excision of Left Breast, Open Approach, Diagnostic (ICD-10-PCS; 2016-05-03)
PROC: 0H9U00Z Drainage of Left Breast with Drainage Device, Open Approach (ICD-10-PCS; principal; 2016-05-03 13:58)
PROC: 0HBUXZZ (ICD-10-PCS; 2016-05-05)
DX: T85.79XA Infection and inflammatory reaction due to other internal prosthetic devices, implants and grafts, initial encounter (principal); L02.213 Cutaneous abscess of chest wall; N61.1 Abscess of the breast and nipple; Y83.1 Surgical operation with implant of artificial internal device as the cause of abnormal reaction of the patient, or of later complication, without mention of misadventure at the time of the procedure; Z85.3 Personal history of malignant neoplasm of breast; Z98.82 Breast implant status; N62 Hypertrophy of breast
CPT/HCPCS: 71250; 85025; 86403; 87070; 87147; 87186; 87205; 88305; 88307; G0378; J0131; J1100; J1644; J1956; J2250; J2270; J2405; J2710; J3010; J7120

== ENCOUNTER 2016-06-13 14:03 | Inpatient (IN) | payer OTHER ==
[~2016-06-13] VITALS: Ht 177.8 cm; Wt 120.0 kg
[~2016-06-13 14:03] MED LIST changes: -CLIN1CAP6 PO
[2016-06-13 14:05] VITALS: BP 149/91; PULSE 93; RESP 20; TEMP 99.8; O2SAT 99
[2016-06-13] MEDS ORDERED: FERR1TAB36 PO (14:29)
[2016-06-13] MEDS ORDERED: VANCOMYCIN INJ 1,000 MG in SODIUM CHLOR 0.9% 250 ML INJ 250 ML IV ONE (15:30)
--- NOTE | 2016-06-13 15:39 | PD ---
HPI Chief Complaint: Fever Time Seen by Provider: 15:16 Travel History International Travel<30 days: No Contact w/Intl Traveler<30days: No Traveled to known affect area: No History of Present Illness HPI The patient was seen and examined in the presence of the nurse. This patient was sent here for mastitis and abdominal wall cellulitis felt to need IV antibiotics. She was seen at the office of her plastic surgeon today and sent here to the emergency room. She has history of mastitis an infected breast implant that had to be removed. He feels that infection has recurred. Duration is one day. She denies fever. There was some drainage from the healing breast wound on the left that was cultured today and the plastic surgeon office. She is developed redness and warmth spreading down the abdominal and chest wall. Symptoms severity is moderate. No alleviating factors. PFSH Past Medical History Anemia: Yes Blood Disorders: No Cancer: Yes (LEFT BREAST) Cardiovascular Problems: Yes (HEART MURMER) Diabetes: No Diminished Hearing: No Endocrine: No Genitourinary: No Hepatitis: No Hiatal Hernia: No Hypertension: Yes Immune Disorder: No Musculoskeletal: No Neurologic: No Psychiatric: No Reproductive: No Respiratory: No Radiation Therapy: Yes (FINISHED IN AUGUST OF LAST YEAR 2013, 28 TREATMENTS) Sickle Cell Disease: Yes (TRAIT) Thyroid Disease: No ?: Not LMP: APR 2016 : 2 Para: 1 Miscarriage: 0 : 0 Past Surgical History Abdominal Surgery: No AICD: No Body Medical Devices: IUD-PARAGUARD , RIGHT AND LEFT BREAST IMPLANTS Cardiac Surgery: No Section: Yes (X 1) Ear Surgery: No Endocrine Surgery: No Eye Surgery: No Genitourinary Surgery: No Gynecologic Surgery: Yes (C SECTION) Joint Replacement: No Neurologic Surgery: No Oral Surgery: No Pacemaker: No Thoracic Surgery: Yes (LEFT BREAST MASTECTOMY, R BREAST REDUCTION, L BREAST RECON.) Other Surgery: Yes Social History Alcohol Use: Yes (OCCASSIONAL) Tobacco Use: No (quit 16 years ago) Substance Use: No Allergies-Medications (Allergen,Severity, Reaction): Coded Allergies: Dilaudid (Verified Adverse Reaction, Severe, Nausea/Vomiting, 06/13/16) Reported Meds & Prescriptions Reported Meds & Active Scripts Active Reported Iron (Ferrous Sulfate) 325 Mg Tab 325 Mg PO DAILY Take Tamoxifen (Tamoxifen Citrate) 20 Mg Tab 20 Mg PO BID Cozaar (Losartan Potassium) 50 Mg Tab 50 Mg PO DAILY Review of Systems General / Constitutional: No: Fever Eyes: No: Visual changes HENT: No: Headaches Cardiovascular: No: Chest Pain or Discomfort Respiratory: No: Shortness of Breath Gastrointestinal: No: Abdominal Pain Genitourinary: No: Dysuria Musculoskeletal: No: Pain Skin: Positive Change in Pigmentation, No Rash Neurologic: No: Weakness Psychiatric: No: Depression Endocrine: No: Polydipsia Hematologic/Lymphatic: No: Easy Bruising Physical Exam Narrative GENERAL: Well-nourished, well-developed patient in no apparent distress. SKIN: Warm and dry. HEAD: Atraumatic. Normocephalic. EYES: Pupils equal and round. No scleral icterus. No injection or drainage. ENT: No nasal bleeding or discharge. Mucous membranes pink and moist. NECK: Trachea midline. No JVD. CARDIOVASCULAR: Regular rate and rhythm. No murmur appreciated. RESPIRATORY: No accessory muscle use. Clear to auscultation. Breath sounds equal bilaterally. GASTROINTESTINAL: Abdomen soft, non-tender, nondistended. Hepatic and splenic margins not palpable. MUSCULOSKELETAL: No obvious deformities. No clubbing. No cyanosis. No edema. Chest wall examination reveals that there is erythema of the left breast and left chest wall and spreading down into the left upper quadrant. Also spreads to the left side to about the mid axillary line. There is macular erythema but no fluctuance or active drainage. There is warmth in the areas of erythema. There is a small open wound in the center of the left breast but no active drainage. NEUROLOGICAL: Awake and alert. No obvious cranial nerve deficits. Motor grossly within normal limits. Normal speech. PSYCHIATRIC: Appropriate mood and affect; insight and judgment normal. Data Data Last Documented VS Vital Signs Date Time Temp Pulse Resp B/P Pulse Ox O2 Delivery O2 Flow Rate FiO2 06/13/16 14:05 99.8 93 20 149/91 99 Room Air Orders Abscess Culture And Gram Stain (06/13/16 ) Iv Access Insert/Monitor (06/13/16 15:25) Complete Blood Count With Diff (06/13/16 15:25) Basic Metabolic Panel (Bmp) (06/13/16 15:25) Prothrombin Time / Inr (Pt) (06/13/16 15:25) Act Partial Throm Time (Ptt) (06/13/16 15:25) Vancomycin Inj (Vancomycin Inj) (06/13/16 15:30) Admit Order (Ed Use Only) (06/13/16 17:05) Labs Laboratory Tests Test 06/13/16 14:50 White Blood Count 14.3 TH/MM3 Red Blood Count 4.04 MIL/MM3 Hemoglobin 10.2 GM/DL Hematocrit 32.1 % Mean Corpuscular Volume 79.3 FL Mean Corpuscular Hemoglobin 25.2 PG Mean Corpuscular Hemoglobin 31.7 % Concent Red Cell Distribution Width 16.0 % Platelet Count 238 TH/MM3 Mean Platelet Volume 9.0 FL Neutrophils (%) (Auto) 83.5 % Lymphocytes (%) (Auto) 12.6 % Monocytes (%) (Auto) 3.4 % Eosinophils (%) (Auto) 0.2 % Basophils (%) (Auto) 0.3 % Neutrophils # (Auto) 11.9 TH/MM3 Lymphocytes # (Auto) 1.8 TH/MM3 Monocytes # (Auto) 0.5 TH/MM3 Eosinophils # (Auto) 0.0 TH/MM3 Basophils # (Auto) 0.0 TH/MM3 CBC Comment DIFF FINAL Differential Comment Prothrombin Time 11.6 SEC Prothromb Time International 1.0 RATIO Ratio Activated Partial 23.2 SEC Thromboplast Time Sodium Level 139 MEQ/L Potassium Level 3.1 MEQ/L Chloride Level 104 MEQ/L Carbon Dioxide Level 27.1 MEQ/L Anion Gap 8 MEQ/L Blood Urea Nitrogen 8 MG/DL Creatinine 0.77 MG/DL Estimat Glomerular Filtration 100 ML/MIN Rate Random Glucose 85 MG/DL Calcium Level 9.1 MG/DL [facility] Medical Decision Making Medical Screen Exam Complete: Yes Emergency Medical Condition: Yes Medical Record Reviewed: Yes Differential Diagnosis Mastitis, abdominal wall cellulitis, abscess Narrative Course I have reviewed the patient's electronic medical record. Reviewed her plastic surgery note from earlier today suggesting IV antibiotics IV placed I ordered 1 g IV vancomycin CBC shows mild leukocytosis of 14,000 Metabolic profile shows hypokalemia of 3.1 Coagulation studies are normal I discussed with medical residents will admit for IV antibiotics. Diagnosis Primary Impression: Abdominal wall cellulitis Additional Impression: Cellulitis of breast Admitting Information Admitting Physician Requests: Admit Chilo Cantu MD Jun 13, 2016 15:39
[2016-06-13 16:58] LABS: AUTOMATED NEUTROPHIL # 11.9 TH/MM3 (1.8-7.7); BASOPHIL % 0.3 % (0.0-2.0); EOSINOPHIL % 0.2 % (0.0-4.0); HEMATOCRIT 32.1 % (35.0-46.0); HEMO FLAGS DIFF FINAL; LYMPH % 12.6 % (9.0-44.0); LYMPHOCYTE # 1.8 TH/MM3 (1.0-4.8); MEAN CELL VOLUME 79.3 FL (80.0-100.0); MEAN CORPUSCULAR HEMOGLOBIN 25.2 PG (27.0-34.0); MEAN CORPUSCULAR HGB CONC 31.7 % (32.0-36.0); MONO % 3.4 % (0.0-8.0); NEUT % 83.5 % (16.0-70.0); PLATELET COUNT 238 TH/MM3 (150-450); RED BLOOD COUNT 4.04 MIL/MM3 (4.00-5.30); WHITE BLOOD COUNT 14.3 TH/MM3 (4.0-11.0)
[2016-06-13 17:04] LABS: APTT (PATIENT) 23.2 SEC (24.3-30.1); PROTHROMBIN TIME - PATIENT 11.6 SEC (9.8-11.6)
[2016-06-13 17:22] LABS: BICARBONATE 27.1 MEQ/L (21.0-32.0); POTASSIUM 3.1 MEQ/L (3.5-5.1)
--- NOTE | 2016-06-13 18:10 | HHI.HP ---
HPI Service Family Medicine Primary Care Physician Shayan Salcedo MD Admission Diagnosis abd wall cellulitis,mastitis Diagnoses: Chief Complaint: cellulitis International Travel<30 Days: No Contact w/Intl Traveler<30days: No Known Affected Area: No History of Present Illness Patient is a 41 yo F with hx of breast ca, coming to hospital for redness/ swelling over left breast and abdomen. Started with fever, chills, n/v, body aches yesterday morning. Resolved with Zofran. Later noticed tenderness over the left breast at 10 pm. At 3 am, she rolled over in bed and noticed severe tenderness. This morning, she noticed that there was redness over the abdomen and took Clindamycin tabs that she had available at home. When she went to post surgical appt with Dr. Russo, she had wound culture taken and was advised to come to the ED. Patient intially having left mastectomy in Feb 2013, reports having multiple complications since initial procedure. Most recently in May 02, 2016 having left breast implant infection; had surgery with Dr. Lewis this next day to have excisional debridement of capsule of reconstructed left breast. At that time, the cultures grew staph. (Rosaura Sandra MD) Review of Systems Constitutional: COMPLAINS OF: Chills, Change in appetite, DENIES: Fever, Weight loss Eyes: DENIES: Blurred vision, Vision loss Respiratory: DENIES: Cough, Shortness of breath Cardiovascular: DENIES: Chest pain, Palpitations Gastrointestinal: DENIES: Abdominal pain, Black stools, Nausea, Vomiting Musculoskeletal: DENIES: Joint pain, Muscle aches Integumentary: COMPLAINS OF: Rash Hematologic/lymphatic: DENIES: Bruising Neurologic: DENIES: Headache, Localized weakness Psychiatric: DENIES: Anxiety, Confusion (Rosaura Sandra MD) Past Family Social History Past Medical History breast cancer - dx Oct 2012, mastectomy and radiation therapy, completed radiation August 2013 HTN SCD trait Past Surgical History C/S in 1998 Breast surgeries Reported Medications Reported Meds & Active Scripts Active Reported Iron (Ferrous Sulfate) 325 Mg Tab 325 Mg PO DAILY Take Tamoxifen (Tamoxifen Citrate) 20 Mg Tab 20 Mg PO BID Cozaar (Losartan Potassium) 50 Mg Tab 50 Mg PO DAILY (Rosaura Sandra MD) Allergies: Coded Allergies: Dilaudid (Verified Adverse Reaction, Severe, Nausea/Vomiting, 06/13/16) Family History paternal uncles with cancer x 2 Social History No t/e/d (Rosaura Sandra MD) Physical Exam Vital Signs Vital Signs Date Time Temp Pulse Resp B/P Pulse Ox O2 Delivery O2 Flow Rate FiO2 06/13/16 14:05 99.8 93 20 149/91 99 Room Air Physical Exam GENERAL: This is a well-nourished, well-developed patient, in no apparent distress. SKIN: No rashes, ecchymoses or lesions. Cool and dry. Left breast s/p mastectomy , having area superior to nipple open but covered with gauze productive of minimal serosanguineous fluid. Erythema over breast and anterior thorax, measuring 14 inches at widest point, area circumscribed with marker. HEAD: Atraumatic. Normocephalic. No temporal or scalp tenderness. EYES: Pupils equal round and reactive. Extraocular motions intact. No scleral icterus. No injection or drainage. ENT: Nose without bleeding, purulent drainage or septal hematoma. Throat without erythema, tonsillar hypertrophy or exudate. Uvula midline. Airway patent. NECK: Trachea midline. No JVD or lymphadenopathy. Supple, nontender, no meningeal signs. CARDIOVASCULAR: Regular rate and rhythm without murmurs, gallops, or rubs. RESPIRATORY: Clear to auscultation. Breath sounds equal bilaterally. No wheezes , rales, or rhonchi. GASTROINTESTINAL: Abdomen soft, non-tender, nondistended. No hepato-splenomegaly , or palpable masses. No guarding. MUSCULOSKELETAL: Extremities without clubbing, cyanosis, or edema. No joint tenderness, effusion, or edema noted. No calf tenderness. Negative Homans sign bilaterally. NEUROLOGICAL: Awake and alert. Cranial nerves II through XII intact. Motor and sensory grossly within normal limits. Five out of 5 muscle strength in all muscle groups. Normal speech. Laboratory Laboratory Tests Test 06/13/16 14:50 White Blood Count 14.3 Red Blood Count 4.04 Hemoglobin 10.2 Hematocrit 32.1 Mean Corpuscular Volume 79.3 Mean Corpuscular Hemoglobin 25.2 Mean Corpuscular Hemoglobin 31.7 Concent Red Cell Distribution Width 16.0 Platelet Count 238 Mean Platelet Volume 9.0 Neutrophils (%) (Auto) 83.5 Lymphocytes (%) (Auto) 12.6 Monocytes (%) (Auto) 3.4 Eosinophils (%) (Auto) 0.2 Basophils (%) (Auto) 0.3 Neutrophils # (Auto) 11.9 Lymphocytes # (Auto) 1.8 Monocytes # (Auto) 0.5 Eosinophils # (Auto) 0.0 Basophils # (Auto) 0.0 CBC Comment DIFF FINAL Differential Comment Prothrombin Time 11.6 Prothromb Time International 1.0 Ratio Activated Partial 23.2 Thromboplast Time Sodium Level 139 Potassium Level 3.1 Chloride Level 104 Carbon Dioxide Level 27.1 Anion Gap 8 Blood Urea Nitrogen 8 Creatinine 0.77 Estimat Glomerular Filtration 100 Rate Random Glucose 85 Calcium Level 9.1 Date/Time Procedure Status Source Growth 06/13/16 14:29 Gram Stain Received Abscess Breast Pending 06/13/16 14:29 Wound Culture Received Abscess Breast Pending (Rosaura Sandra MD) Result Diagram: 06/13/16 1450 06/13/16 1450 Septic Shock Reassessment Heart: Regular rate and rhythm Lungs: Clear Skin: Warm Capillary Refill: <2 seconds (Rosaura Sandra MD) Assessment and Plan Assessment and Plan 41 yo F, hx of complications related to left mastectomy, being admitted for extensive cellulitis over the anterior trunk. Code Status Full Discussed Condition With Dr. Matt Sandra (Rosaura Sandra MD) Attending Attestation THIS CASE WAS DISCUSSED WITH THE RESIDENT PHYSICIANS. I HAVE REVIEWED THE RECORD AND AGREE WITH THE ABOVE NOTE AND PLAN OF CARE WAS DISCUSSED. I HAVE AUTHORIZED THE ORDER FOR ADMISSION TO AN IN-PATIENT STATUS. (Milind Griffith MD) Problem List: (1) Cellulitis of breast Status: Acute Plan: -Admit to inpatient -Vancomycin 1 g IV q12h -Vanc consult -Blood culture, wound culture -Consult Plastic surgery -Lactic acid now -IV fluids -Tylenol prn fever, pain 3-5 -[place] 5 prn pain 6-10 -AM: CBC, BMP (2) Abdominal wall cellulitis Status: Acute Plan: See plan above (3) Leukocytosis Status: [place]: [place] [address] with elevated neutrophils. Related to cellulitis as discussed above. -see plan above -consider further workup if continued fever (4) HTN (hypertension), benign Status: Chronic Plan: BP elevated to systolic 149 in the ED -Continue Losartan -Vasotec 2.5 mg IV prn BP > 160/90 (5) History of breast cancer in female Status: Chronic Plan: Continue Tamoxifen Plan as above (6) Anemia Status: Chronic Plan: Sickle cell trait, patient having mild microcytic anemia. Possible Fe def factor. -Continue Fe per home regimen (7) Nutrition, metabolism, and development symptoms Status: Acute Plan: Regular diet NS at 125 mls/hr Electrolytes: K 3.1, replete, recheck BMP in AM Lovenox 40 mg q24h (Rosaura Sandra MD) Physician Certification 2 Midnight Certification Type: Admission for Inpatient Services Order for Inpatient Services The services are ordered in accordance with Medicare regulations or non- Medicare payer requirements, as applicable. In the case of services not specified as inpatient-only, they are appropriately provided as inpatient services in accordance with the 2-midnight benchmark. Estimated LOS (days): 3 3 days is the estimated time the patient will need to remain in the hospital, assuming treatment plan goals are met and no additional complications. Post-Hospital Plan: Home (Rosaura Sandra MD) Problem Qualifiers (1) Anemia: Qualified Code: D63.8 - Anemia in other chronic diseases classified elsewhere Rosaura Sandra MD Jun 13, 2016 18:10 Milind Griffith MD Jun 14, 2016 11:13
[2016-06-13 18:41] VITALS: BP 164/82; PULSE 98; RESP 18; TEMP 101.5; O2SAT 99
[2016-06-13] MEDS ORDERED: POTASSIUM CHLORIDE 20 MEQ CONTROLLED RELEASE TAB PO ONE (18:45)
[2016-06-13] MEDS ORDERED: SODIUM CHLORIDE 0.9% FLUSH 10 ML FLUSH IV FLUSH PRN (18:45)
[2016-06-13] MEDS ORDERED: ACETAMINOPHEN 500 MG CPLT PO PRN (18:45)
[2016-06-13] MEDS ORDERED: Vancomycin Consult Pharmacy 1 EA XX SCH (18:45)
[2016-06-13 20:00] VITALS: BP 144/87; PULSE 97; RESP 20; TEMP 99.6; O2SAT 98
[2016-06-13] MEDS: ACETAMINOPHEN/HYDROcodone 325 MG/5 MG TAB PO PRN (20:27)
[2016-06-13] MEDS: ENOXAPARIN SODIUM 40 MG/0.4 ML SYRINGE SQ SCH (20:27)
[2016-06-13] MEDS: SODIUM CHLORIDE 0.9% FLUSH 10 ML FLUSH IV FLUSH SCH (20:28)
[2016-06-13] MEDS ORDERED: ENALAPRILAT 2.5 MG/2 ML VIAL IV PUSH PRN (20:45)
[2016-06-13] MEDS: SODIUM CHLOR 0.9% 1000 ML INJ 1,000 ML IV SCH (21:54)
[2016-06-13] MEDS: TAMOXIFEN CITRATE 10 MG TAB PO SCH (21:54)
[2016-06-14] VITALS: BP 128/75; PULSE 86; RESP 20; TEMP 99.3; O2SAT 97
[2016-06-14] MEDS ORDERED: VANCOMYCIN INJ 1,500 MG in SODIUM CHLORID 0.9% 500 ML INJ 500 ML IV SCH ×2
[2016-06-14] MEDS: ACETAMINOPHEN/HYDROcodone 325 MG/5 MG TAB PO PRN (03:09)
[2016-06-14] MEDS ORDERED: VANCOMYCIN INJ 1,000 MG in SODIUM CHLOR 0.9% 250 ML INJ 250 ML IV SCH (03:30)
[2016-06-14 05:04] LABS: BASOPHIL % 0.1 % (0.0-2.0); EOSINOPHIL # 0.2 TH/MM3 (0-0.4); EOSINOPHIL % 1.4 % (0.0-4.0); HEMATOCRIT 28.9 % (35.0-46.0); HEMO FLAGS DIFF FINAL; LYMPH % 10.9 % (9.0-44.0); LYMPHOCYTE # 1.2 TH/MM3 (1.0-4.8); MEAN CELL VOLUME 78.3 FL (80.0-100.0); MEAN CORPUSCULAR HEMOGLOBIN 26.1 PG (27.0-34.0); MEAN CORPUSCULAR HGB CONC 33.3 % (32.0-36.0); MONO % 5.3 % (0.0-8.0); NEUT % 82.3 % (16.0-70.0); PLATELET COUNT 221 TH/MM3 (150-450); RED BLOOD COUNT 3.69 MIL/MM3 (4.00-5.30); RED CELL DISTRIBUTION WIDTH 15.6 % (11.6-17.2); WHITE BLOOD COUNT 10.9 TH/MM3 (4.0-11.0)
[2016-06-14 05:38] LABS: BICARBONATE 27.3 MEQ/L (21.0-32.0)
[2016-06-14 05:41] LABS: POTASSIUM 3.7 MEQ/L (3.5-5.1)
[2016-06-14] MEDS: SODIUM CHLOR 0.9% 1000 ML INJ 1,000 ML IV SCH ×3 (06:26→20:35)
[2016-06-14 08:00] VITALS: BP 121/72; PULSE 87; RESP 18; TEMP 98.3; O2SAT 95
[2016-06-14] MEDS: TAMOXIFEN CITRATE 10 MG TAB PO SCH ×2 (08:28→20:35)
[2016-06-14] MEDS: SODIUM CHLORIDE 0.9% FLUSH 10 ML FLUSH IV FLUSH SCH ×2 (08:29→20:35)
[2016-06-14] MEDS: FERROUS SULFATE 325 MG (65 MG ELEMENTAL IRON) TAB PO SCH (08:29)
[2016-06-14] MEDS: LOSARTAN 50 MG TAB PO SCH (08:29)
[2016-06-14] MEDS: ACETAMINOPHEN/HYDROcodone 325 MG/10 MG TAB PO PRN ×3 (10:26→20:35)
--- NOTE | 2016-06-14 11:12 | HHI.FPPN ---
Subjective Remarks No acute events overnight patient is now afebrile. She continues to have discomfort along the left breast and left upper abdomen/left flank. She feels that this has not gotten any better and was unable to sleep well because of pain in that area. She denies any subjective fevers or chills. She denies any nausea or vomiting. She denies any pleuritic chest pain or palpitations. She denies any new drainage from the area. In summary this is a 41-year-old female with a history of breast cancer status post bilateral mastectomy and reconstruction surgery who has had issues with her left breast implant. She was here in April 2016 with a left breast implant infection that was treated with removal of the implant and surgical debridement as well as antibiotics. She was seen at Dr. Russo's office yesterday where a swab was taken due to erythema and drainage from the area and she was sent to the hospital for IV antibiotic treatment. In the emergency department, she was started on vancomycin for cellulitis involving the left breast, left upper abdomen and left flank. Past Medical History breast cancer - dx Oct 2012, mastectomy and radiation therapy, completed radiation August 2013 HTN SCD trait Past Surgical History C/S in 1998 Breast surgeries Family History paternal uncles with cancer x 2 Social History No t/e/d Objective Vitals Vital Signs Date Time Temp Pulse Resp B/P Pulse Ox O2 Delivery O2 Flow Rate FiO2 06/14/16 08:00 98.3 87 18 121/72 95 06/14/16 00:00 99.3 86 20 128/75 97 06/13/16 20:00 99.6 97 20 144/87 98 06/13/16 18:41 101.5 98 18 164/82 99 Room Air 06/13/16 14:05 99.8 93 20 149/91 99 Room Air I/O 06/13/16 06/13/16 06/13/16 06/14/16 06/14/16 06/14/16 07:00 15:00 23:00 07:00 15:00 23:00 Intake Total 898 ml Output Total 250 ml Balance 648 ml Intake Oral 240 ml IV Total 658 ml Output Urine Total 250 ml Result Diagram: 06/14/16 0436 06/14/16 0436 Objective Remarks GENERAL: Happy, pleasant appearing female in no obvious distress SKIN: Left breast s/p mastectomy with area of fullness at 8:00, having area superior to nipple open but covered with gauze productive of minimal serosanguineous fluid. Erythema over breast and anterior thorax, measuring 14 inches at widest point, area circumscribed with marker and without change today. NECK: Trachea midline. No JVD or lymphadenopathy. Supple, nontender, no meningeal signs. CARDIOVASCULAR: Regular rate and rhythm without murmurs, gallops, or rubs. RESPIRATORY: Clear to auscultation. Breath sounds equal bilaterally. No wheezes , rales, or rhonchi. GASTROINTESTINAL: Abdomen soft, non-tender, nondistended. MUSCULOSKELETAL: Extremities without clubbing, cyanosis, or edema. NEUROLOGICAL: Awake and alert. Cranial nerves II through XII intact. A/P Assessment and Plan 41 yo F, hx of complications related to left mastectomy, being admitted for extensive cellulitis over the anterior trunk. Problem List: (1) Cellulitis of breast Status: Acute Plan: Review of previous culture from 04/2016 shows pansensitive Staphylococcus - Repeat culture was obtained and Dr. Russo's office, we will follow-up culture - Blood cultures were drawn and pending IV antibiotics to continue today: - Vancomycin 1 g IV every 12 hours (started on 06/13) Consult Plastic surgery - patient known to Dr. Garzon Leukocytosis has resolved Patient is now afebrile Lactic acid was elevated to 2.4 -IV fluids -Tylenol prn fever, pain 3-5 -Animas 5 prn pain 6-10 -AM: CBC, BMP (2) Abdominal wall cellulitis Status: Acute Plan: See plan above (3) Leukocytosis Status: Acute Plan: [place] [address] on admission with repeat of 10.9 today -see plan above for continued treatment of infection (4) HTN (hypertension), benign Status: Chronic Plan: Blood pressure elevated on arrival, has normalized today Continue home losartan 50 mg daily -Vasotec 2.5 mg IV prn BP > 160/90 (5) History of breast cancer in female Status: Chronic Plan: Continue Tamoxifen Plan as above (6) Anemia Status: Chronic Plan: Sickle cell trait, patient having mild microcytic anemia. Possible Fe def factor. -Continue Fe per home regimen (7) Nutrition, metabolism, and development symptoms Status: Acute Plan: Regular diet NS at 125 mls/hr Electrolytes: K 3.7, replete as needed, follow daily labs Lovenox 40 mg q24h Problem Qualifiers (1) Anemia: Qualified Code: D63.8 - Anemia in other chronic diseases classified elsewhere Milind Griffith MD Jun 14, 2016 11:12
[2016-06-14 12:00] VITALS: BP 135/75; PULSE 82; RESP 17; TEMP 98.9; O2SAT 96
[2016-06-14] MEDS: VANCOMYCIN INJ 2,000 MG in SODIUM CHLORID 0.9% 500 ML INJ 500 ML IV SCH ×2 (12:01→23:16)
--- NOTE | 2016-06-14 12:59 | RADRPT ---
EXAM DATE/TIME: 06/14/2016 11:24 [facility] COMPARISON: US BREAST LEFT, April 25, 2016, 15:25. EXTERNAL COMPARISON : [facility], MAMMOGRAM, SCREENING, January 31, 2016 INDICATIONS : Left breast abscess. MEDICAL HISTORY : Hypertension. Carcinoma, breast. Sickle Cell disease. Heart murmur. Anemia. SURGICAL HISTORY : section. Mastectomy, left. Right breast reduction and silicone augm entation. Left latissimus dorsi flap. Left breast biopsy. Left breast reconstruction. Radiation thera py. ENCOUNTER: Initial ACUITY: 1 week PAIN SCORE: 3/10 LOCATION: Left breast. FINDINGS: Multiple sonographic images of the left breast were performed to and demonstrate diffus e subcutaneous edema but no definite discrete fluid collection to suggest abscess. Clinical correlati on is recommended. CONCLUSION: Diffuse subcutaneous edema without definite discrete fluid collection to suggest absc ess. Clinical correlation is recommended. Maxx Jarrett MD on June 14, 2016 at 12:56 Board Certified Radiologist. This report was verified electronically.
[2016-06-14 16:00] VITALS: BP_SYST 135; BP_SYST 148; BP_DIAS 75; BP_DIAS 81; PULSE 75; PULSE 82; RESP 17; RESP 20; TEMP 98.6; TEMP 98.9; O2SAT 96; O2SAT 98
[2016-06-14 20:00] VITALS: BP 149/70; PULSE 64; RESP 20; TEMP 97.8; O2SAT 94
[2016-06-14] MEDS: ENOXAPARIN SODIUM 40 MG/0.4 ML SYRINGE SQ SCH (20:35)
[2016-06-15] VITALS: BP 141/69; PULSE 78; RESP 20; TEMP 97.6; O2SAT 96
[2016-06-15] MEDS: ACETAMINOPHEN/HYDROcodone 325 MG/10 MG TAB PO PRN ×2 (00:09→09:27)
[2016-06-15] MEDS: SODIUM CHLOR 0.9% 1000 ML INJ 1,000 ML IV SCH (05:00)
[2016-06-15 05:55] LABS: BICARBONATE 26.2 MEQ/L (21.0-32.0); POTASSIUM 3.4 MEQ/L (3.5-5.1)
[2016-06-15 06:01] LABS: AUTOMATED NEUTROPHIL # 5.2 TH/MM3 (1.8-7.7); BASOPHIL % 0.2 % (0.0-2.0); EOSINOPHIL # 0.3 TH/MM3 (0-0.4); EOSINOPHIL % 4.2 % (0.0-4.0); HEMATOCRIT 29.7 % (35.0-46.0); HEMO FLAGS DIFF FINAL; LYMPH % 18.3 % (9.0-44.0); LYMPHOCYTE # 1.3 TH/MM3 (1.0-4.8); MEAN CELL VOLUME 78.3 FL (80.0-100.0); MEAN CORPUSCULAR HEMOGLOBIN 25.7 PG (27.0-34.0); MEAN CORPUSCULAR HGB CONC 32.9 % (32.0-36.0); MONO % 6.6 % (0.0-8.0); NEUT % 70.7 % (16.0-70.0); PLATELET COUNT 230 TH/MM3 (150-450); RED BLOOD COUNT 3.79 MIL/MM3 (4.00-5.30); RED CELL DISTRIBUTION WIDTH 15.7 % (11.6-17.2); WHITE BLOOD COUNT 7.3 TH/MM3 (4.0-11.0)
[2016-06-15 08:00] VITALS: BP 127/69; PULSE 82; RESP 18; TEMP 97.9; O2SAT 97
[2016-06-15] MEDS: SODIUM CHLORIDE 0.9% FLUSH 10 ML FLUSH IV FLUSH SCH ×2 (09:00→20:06)
[2016-06-15] MEDS: LOSARTAN 50 MG TAB PO SCH (09:26)
[2016-06-15] MEDS: TAMOXIFEN CITRATE 10 MG TAB PO SCH ×2 (09:26→20:04)
[2016-06-15] MEDS: FERROUS SULFATE 325 MG (65 MG ELEMENTAL IRON) TAB PO SCH (09:26)
--- NOTE | 2016-06-15 10:37 | HHI.FPPN ---
Subjective Remarks Redness reduced significantly, denies F C N V or CP. Packing placed by Dr. Russo. Less pain today. Some itching of skin. (Murtaza Lewis MD R2) Objective Vitals Vital Signs Date Time Temp Pulse Resp B/P Pulse Ox O2 Delivery O2 Flow Rate FiO2 06/15/16 00:00 97.6 78 20 141/69 96 06/14/16 20:00 97.8 64 20 149/70 94 06/14/16 17:07 20 06/14/16 16:00 98.6 75 20 148/81 98 06/14/16 12:00 98.9 82 17 135/75 96 I/O 06/14/16 06/14/16 06/14/16 06/15/16 06/15/16 06/15/16 07:00 15:00 23:00 07:00 15:00 23:00 Intake Total 898 ml 740 ml 838 ml 1308 ml Output Total 250 ml 850 ml 750 ml 450 ml Balance 648 ml -110 ml 88 ml 858 ml Intake Oral 240 ml 740 ml 480 ml 240 ml IV Total 658 ml 358 ml 1068 ml Output Urine Total 250 ml 850 ml 750 ml 450 ml # Bowel Movements 1 0 0 (Murtaza Lewis MD R2) Result Diagram: 06/15/1642406/15/16424 Objective Remarks GENERAL: Happy, pleasant appearing female in no obvious distress SKIN: Left breast s/p mastectomy with area of fullness at 8:00, having area superior to nipple open but covered with gauze productive of minimal serosanguineous fluid. Erythema over breast and anterior thorax, area circumscribed with marker and significant less erythema today. NECK: Trachea midline. No JVD or lymphadenopathy. Supple, nontender, no meningeal signs. CARDIOVASCULAR: Regular rate and rhythm without murmurs, gallops, or rubs. RESPIRATORY: Clear to auscultation. Breath sounds equal bilaterally. No wheezes , rales, or rhonchi. GASTROINTESTINAL: Abdomen soft, non-tender, nondistended. MUSCULOSKELETAL: Extremities without clubbing, cyanosis, or edema. NEUROLOGICAL: Awake and alert. Cranial nerves II through XII intact. (Murtaza Lewis MD R2) A/P Assessment and Plan 41 yo F, hx of complications related to left mastectomy, being admitted for extensive cellulitis over the anterior trunk. (Murtaza Lewis MD R2) Attending Attestation Pt. examined and case discussed with resident physician I have read the above note and agree with the assessment/plan as discussed with me I was involved in all medical decision making for this patient Milind Griffith MD (Milind Griffith MD) Problem List: (1) Cellulitis of breast Status: Acute Plan: Review of previous culture from 04/2016 shows pansensitive Staphylococcus - Repeat culture was obtained and Dr. Russo's office, we will follow-up culture - Blood cultures neg x 1 day. IV antibiotics to continue today: - Vancomycin 1 g IV every 12 hours (started on 06/13) Consult Plastic surgery - patient known to Dr. Garzon, will follow recs Leukocytosis has resolved Patient is now afebrile -IV fluids -Tylenol prn fever, pain 3-5 -Sargeant 5 prn pain 6-10 -AM: CBC, BMP (2) Abdominal wall cellulitis Status: Acute Plan: See plan above (3) Leukocytosis Status: Acute [place]: [place] [address] on admission, WNL on 06/15 -see plan above for continued treatment of infection (4) HTN (hypertension), benign Status: Chronic Plan: Blood pressure elevated on arrival, has normalized today Continue home losartan 50 mg daily -Vasotec 2.5 mg IV prn BP > 160/90 (5) History of breast cancer in female Status: Chronic Plan: Continue Tamoxifen Plan as above (6) Anemia Status: Chronic Plan: Sickle cell trait, patient having mild microcytic anemia. Possible Fe def factor. -Continue Fe per home regimen (7) Nutrition, metabolism, and development symptoms Status: Acute Plan: Regular diet NS at 125 mls/hr hold IVF. Electrolytes: K 3.4, replete as needed, follow daily labs Lovenox [address] Griffith. (Murtaza Lewis MD R2) Problem Qualifiers (1) Anemia: Qualified Code: D63.8 - Anemia in other chronic diseases classified elsewhere Murtaza Lewis MD R2 Jun 15, 2016 10:37 Milind Griffith MD Jun 15, 2016 20:39
[2016-06-15] MEDS: diphenhydrAMINE HCL 25 MG CAP PO PRN (11:27)
[2016-06-15] MEDS: VANCOMYCIN INJ 2,000 MG in SODIUM CHLORID 0.9% 500 ML INJ 500 ML IV SCH (11:38)
[2016-06-15] MEDS ORDERED: PHARMACY ORDERED LAB XX ONE (11:45)
[2016-06-15 12:00] VITALS: BP 145/81; PULSE 78; RESP 18; TEMP 98.3; O2SAT 96
[2016-06-15] MEDS: ACETAMINOPHEN/HYDROcodone 325 MG/5 MG TAB PO PRN ×2 (13:48→17:51)
--- NOTE | 2016-06-15 13:49 | PD.CONS ---
History of Present Illness Service Plastic Surgery Consult Requested By Reason for Consult Left breast cellulitis. Primary Care Physician Shayan Salcedo MD Diagnoses: History of Present Illness Patient seen on 06/14/16 This is a 41 year old female who was admitted to the hospital on 06/13/16 for treatment of cellulitis of the left breast and abdomen. The patient was placed on IV antibiotics and fever and WBC count have resolved, though cellulitis remains. She has a history of open wound of the left breast secondary to drainage of an abscess in March 2016. She has been doing daily wound care and dressing changes as discussed. She noted feeling unwell on 06/12/16 and waking the next morning with redness, induration, and tenderness to the left breast and abdomen. She was sent to the ER for evaluation after presenting to the office with the above symptoms. A fever of 99.3 was also documented at that time. The patient reports that she is feeling better today. Review of Systems Except as stated in HPI: all other systems reviewed are Neg Past Family Social History Allergies: Coded Allergies: Dilaudid (Verified Adverse Reaction, Severe, Nausea/Vomiting, 06/13/16) Past Medical History Breast cancer HTN Sickle cell trait Past Surgical History Mastectomy Left breast reconstruction Active Ordered Medications Current Medications Medications (Trade) Dose Ordered Sig/Justin Route Start Time Stop Time Status Last Admin (Ferrous Sulfate) 325 mg DAILY PO 06/14/16 09:00 06/15/16 09:26 (Cozaar) 50 mg DAILY PO 06/14/16 09:00 06/15/16 09:26 (Nolvadex) 20 mg BID PO 06/13/16 21:00 06/15/16 09:26 (NS Flush) 2 ml BID IV FLUSH 06/13/16 21:00 06/13/16 20:28 Sodium Chloride 2 ml 2 ml UNSCH PRN IV FLUSH 06/13/16 18:45 (Vancomycin Consult Pharmacy) 0 ml @ 0 mls/hr UNSCH XX 06/13/16 18:45 (Tylenol) 500 mg Q4H PRN PO 06/13/16 18:45 06/13/16 18:49 (Varina 5-325 Mg) 1 tab Q4H PRN PO 06/13/16 18:45 06/14/16 03:09 (Lovenox Inj) 40 mg Q24H SQ 06/13/16 20:00 06/14/16 20:35 (Vasotec Inj) 2.5 mg Q6H PRN IV PUSH 06/13/16 20:45 (Varina 10-325 Mg) 1 tab Q4H PRN PO 06/14/16 09:00 06/15/16 09:27 Diphenhydramine HCl 25 mg 25 mg Q6H PRN PO 06/15/16 10:30 06/15/16 11:27 (Vancomycin Inj/ NS 500 ml Inj) 522.5 ml @ 250 mls/hr Q12H IV 06/16/16 00:00 Family History Paternal uncles with cancer Social History No use of tobacco, alcohol or drugs. Physical Exam Vital Signs Vital Signs Date Time Temp Pulse Resp B/P Pulse Ox O2 Delivery O2 Flow Rate FiO2 06/15/16 12:00 98.3 78 18 145/81 96 06/15/16 08:00 97.9 82 18 127/69 97 06/15/16 00:00 97.6 78 20 141/69 96 06/14/16 20:00 97.8 64 20 149/70 94 06/14/16 17:07 20 06/14/16 16:00 98.6 75 20 148/81 98 Physical Exam GENERAL: This is a well-nourished, well-developed patient, in no apparent distress. SKIN: Erythema and induration to the left breast, extending to the abdomen and left side. Wound of the left breast with minimal drainage. No odor or purulence. No evidence of abscess. HEAD: Atraumatic. Normocephalic. EYES: Pupils equal round and reactive. Extraocular motions intact. No scleral icterus. No injection or drainage. ENT: Nose without bleeding, purulent drainage. Uvula midline. Airway patent. NECK: Trachea midline. CARDIOVASCULAR: Regular rate and rhythm without murmurs, gallops, or rubs. RESPIRATORY: Clear to auscultation. Breath sounds equal bilaterally. No wheezes , rales, or rhonchi. MUSCULOSKELETAL: Extremities without clubbing, cyanosis, or edema. NEUROLOGICAL: Awake and alert. Cranial nerves II through XII intact. Motor and sensory grossly within normal limits. Normal speech. Laboratory Laboratory Tests Test 06/15/16 06/15/16 04:25 11:36 White Blood Count 7.3 Red Blood Count 3.79 Hemoglobin 9.8 Hematocrit 29.7 Mean Corpuscular Volume 78.3 Mean Corpuscular Hemoglobin 25.7 Mean Corpuscular Hemoglobin 32.9 Concent Red Cell Distribution Width 15.7 Platelet Count 230 Mean Platelet Volume 8.4 Neutrophils (%) (Auto) 70.7 Lymphocytes (%) (Auto) 18.3 Monocytes (%) (Auto) 6.6 Eosinophils (%) (Auto) 4.2 Basophils (%) (Auto) 0.2 Neutrophils # (Auto) 5.2 Lymphocytes # (Auto) 1.3 Monocytes # (Auto) 0.5 Eosinophils # (Auto) 0.3 Basophils # (Auto) 0.0 CBC Comment DIFF FINAL Differential Comment Sodium Level 143 Potassium Level 3.4 Chloride Level 109 Carbon Dioxide Level 26.2 Anion Gap 8 Blood Urea Nitrogen 5 Creatinine 0.40 Estimat Glomerular Filtration 213 Rate Random Glucose 89 Calcium Level 8.5 Vancomycin Level Trough 8.1 Date/Time Procedure Status Source Growth 06/13/16 20:06 Aerobic Blood Culture - Preliminary Resulted Blood Peripheral NO GROWTH IN 2 DAYS 06/13/16 20:06 Anaerobic Blood Culture - Preliminary Resulted Blood Peripheral NO GROWTH IN 2 DAYS 06/13/16 14:29 Gram Stain Received Abscess Breast Pending 06/13/16 14:29 Wound Culture Received Abscess Breast Pending 06/13/16 13:30 Gram Stain - Final Resulted Abscess Breast 06/13/16 13:30 Wound Culture - Preliminary Resulted Gram Negative Eugenio Staphylococcus Aureus Group B Beta Strep Group D Enterococcus Result Diagram: 06/15/16 0425 06/15/16424 Assessment and Plan Problem List: (1) Cellulitis of breast Status: Acute (2) Abdominal wall cellulitis Status: Acute Assessment and Plan The wound is explored and packed with iodophor gauze. This should be done daily. There is no evidence of discrete abscess to be drained at this time. Discussed Condition With The exam, history, and the medical decision-making described in the above note were completed with the assistance of the mid-level provider. I reviewed and agree with the findings presented. I attest that I had a [id number] encounter with the patient on the same day, and personally performed and documented my assessment and findings in the medical record. Rola Russo M.D. Discharge Planning Patient to continue with daily dressing changes after being discharged. Laura Olvera Jun 15, 2016 13:49
[2016-06-15 16:00] VITALS: BP 155/72; PULSE 73; RESP 18; TEMP 98.8; O2SAT 95
[2016-06-15] MEDS: ENOXAPARIN SODIUM 40 MG/0.4 ML SYRINGE SQ SCH (20:04)
[2016-06-15 20:17] VITALS: BP 143/78; PULSE 82; RESP 20; TEMP 98.4; O2SAT 94
[2016-06-15] MEDS: VANCOMYCIN INJ 2,250 MG in SODIUM CHLORID 0.9% 500 ML INJ 500 ML IV SCH (23:38)
[2016-06-16 00:28] VITALS: BP 144/73; PULSE 80; RESP 20; TEMP 98.4; O2SAT 100
[2016-06-16] MEDS: ACETAMINOPHEN/HYDROcodone 325 MG/10 MG TAB PO PRN ×3 (04:10→11:44)
[2016-06-16 04:42] LABS: POTASSIUM 3.8 MEQ/L (3.5-5.1)
[2016-06-16 04:45] LABS: AUTOMATED NEUTROPHIL # 4.8 TH/MM3 (1.8-7.7); BASOPHIL # 0.1 TH/MM3 (0-0.2); EOSINOPHIL # 0.3 TH/MM3 (0-0.4); EOSINOPHIL % 3.8 % (0.0-4.0); HEMATOCRIT 32.3 % (35.0-46.0); HEMO FLAGS DIFF FINAL; LYMPH % 23.8 % (9.0-44.0); LYMPHOCYTE # 1.7 TH/MM3 (1.0-4.8); MEAN CELL VOLUME 78.6 FL (80.0-100.0); MEAN CORPUSCULAR HEMOGLOBIN 25.1 PG (27.0-34.0); MONO % 6.2 % (0.0-8.0); NEUT % 65.2 % (16.0-70.0); PLATELET COUNT 221 TH/MM3 (150-450); RED CELL DISTRIBUTION WIDTH 15.5 % (11.6-17.2); WHITE BLOOD COUNT 7.3 TH/MM3 (4.0-11.0)
[2016-06-16] MEDS: SODIUM CHLORIDE 0.9% FLUSH 10 ML FLUSH IV FLUSH SCH (07:57)
[2016-06-16] MEDS: LOSARTAN 50 MG TAB PO SCH (07:57)
[2016-06-16] MEDS: FERROUS SULFATE 325 MG (65 MG ELEMENTAL IRON) TAB PO SCH (07:57)
[2016-06-16] MEDS: TAMOXIFEN CITRATE 10 MG TAB PO SCH (07:57)
[2016-06-16 08:00] VITALS: BP 127/70; PULSE 77; RESP 17; TEMP 97.8; O2SAT 98
--- NOTE | 2016-06-16 08:13 | HHI.FPPN ---
Subjective Remarks Patient was seen and examined this morning. She states she feels much better. She had a bowel movement last night. She is eating and drinking without difficulty. Pain is well-controlled on Kirklin. She is aware that cultures are pending, polymicrobial, and sensitivities are pending. She is ready to potentially go home today if cleared. (Rosa Sandra MD R1) Objective Vitals Vital Signs Date Time Temp Pulse Resp B/P Pulse Ox O2 Delivery O2 Flow Rate FiO2 06/16/16 00:28 98.4 80 20 144/73 100 06/15/16 20:17 98.4 82 20 143/78 94 06/15/16 16:00 98.8 73 18 155/72 95 06/15/16 12:00 98.3 78 18 145/81 96 I/O 06/15/16 06/15/16 06/15/16 06/16/16 06/16/16 06/16/16 07:00 15:00 23:00 07:00 15:00 23:00 Intake Total 1308 ml 1554 ml 678 ml 980 ml Output Total 450 ml Balance 858 ml 1554 ml 678 ml 980 ml Intake Oral 240 ml 480 ml 480 ml 480 ml IV Total 1068 ml 1074 ml 198 ml 500 ml Output Urine Total 450 ml # Voids 3 2 2 # Bowel Movements 0 1 (Rosa Sandra MD R1) Result Diagram: 06/16/16 0407 06/16/16 0407 Imaging Last Impressions Breast Ultrasound 06/14/16 0000 Signed Impressions: Service Date/Time: Tuesday, June 14, 2016 11:24 - CONCLUSION: Diffuse subcutaneous edema without definite discrete fluid collection to suggest abscess. Clinical correlation is recommended. Maxx Jarrett MD Objective Remarks GENERAL: Well-appearing, well-developed -[place] female lying in bed in no acute distress. She is lying on her right side. SKIN: Left breast s/p mastectomy with area of fullness at 8:00, having area superior to nipple open but covered with gauze productive of minimal serosanguineous fluid. Erythema over breast and anterior thorax, area circumscribed with marker and significant less erythema today. NECK: Trachea midline. No JVD or lymphadenopathy. Supple, nontender, no meningeal signs. CARDIOVASCULAR: Regular rate and rhythm without murmurs, gallops, or rubs. RESPIRATORY: Clear to auscultation. Breath sounds equal bilaterally. No wheezes , rales, or rhonchi. GASTROINTESTINAL: Abdomen soft, non-tender, nondistended. MUSCULOSKELETAL: Extremities without clubbing, cyanosis, or edema. NEUROLOGICAL: Awake and alert. Cranial nerves II through XII intact. Medications and IVs Inpatient Medications Acetaminophen (Tylenol) 500 mg Q4H PRN PO FEVER >101F Last administered on 06/13 18:49; Start 06/13/16 at 18:45 Acetaminophen/ Hydrocodone Bitart (Kirklin 5-325 Mg) 1 tab Q4H PRN PO PAIN SCALE 3-6 Last administered on 06/15/16 17:51; Start 06/13/16 at 18:45 Acetaminophen/ Hydrocodone Bitart (Kirklin 10-325 Mg) 1 tab Q4H PRN PO pain 7-10 Last administered on 06/16/16 08:01; Start 06/14/16 at 09:00 Diphenhydramine HCl 25 mg 25 mg Q6H PRN PO pruritis Last administered on 11:27; Start 06/15/16 at 10:30 Enalaprilat (Vasotec Inj) 2.5 mg Q6H PRN IV PUSH SBP>160, DBP>90; Start at 20:45 Enoxaparin Sodium (Lovenox Inj) 40 mg Q24H SQ Last administered on 06/15/16 20 :04; Start 06/13/16 at 20:00 Ferrous Sulfate (Ferrous Sulfate) 325 mg DAILY PO Last administered on 07:57; Start 06/14/16 at 09:00 Losartan Potassium (Cozaar) 50 mg DAILY PO Last administered on 06/16/16 07:57 ; Start 06/14/16 at 09:00 Miscellaneous Information SPECIFIC LAB TO BE DRAWN:[facility] TROUGH DATE TO BE .. ONCE ONCE XX Last administered on 06/15/16 11:37; Start 06/15/16 at 11: 45; Stop 06/15/16 at 11:46; Status DC Pharmacy Profile Note (Vancomycin Consult Pharmacy) 0 ml @ 0 mls/hr UNSCH XX ; Start 06/13/16 at 18:45 Potassium Chloride (KCl) 40 meq ONCE ONCE PO Last administered on 06/13/16 18 :45; Start 06/13/16 at 18:45; Stop 06/13/16 at 18:46; Status DC Sodium Chloride (NS 1000 ml Inj) 1,000 ml @ 125 mls/hr Q8H IV Last administered on 06/14/16 12:02; Start 06/13/16 at 21:00; Stop 06/15/16 at 10:37 ; Status DC Sodium Chloride (NS Flush) 2 ml BID IV FLUSH Last administered on 06/16/16 07: 57; Start 06/13/16 at 21:00 Sodium Chloride 2 ml 2 ml UNSCH PRN IV FLUSH FLUSH AFTER USING IV ACCESS; Start 06/13/16 at 18:45 Tamoxifen Citrate (Nolvadex) 20 mg BID PO Last administered on 06/16/16 07:57 ; Start 06/13/16 at 21:00 Vancomycin HCl/ Sodium Chloride (Vancomycin Inj/ NS 250 ml Inj) 250 ml @ 250 mls/hr ONCE ONCE IV Last administered on 06/13/16 15:30; Start 06/13/16 at 15 :30; Stop 06/13/16 at 16:29; Status DC Vancomycin HCl/ Sodium Chloride (Vancomycin Inj/ NS 500 ml Inj) 522.5 ml @ 250 mls/hr Q12H IV Last administered on 06/15/16 23:38; Start 06/16/16 at 00:00 ( Rosa Sandra MD R1) Urinary Catheter: No (Rosa Sandra MD R1) Vascular Central Line Catheter: No (Rosa Sandra MD R1) A/P Assessment and Plan 41 yo F, hx of complications related to left mastectomy, being admitted for extensive cellulitis over the anterior trunk. Discharge Planning Discharge likely today, pending sensitivities on wound culture (Rosa Sandra MD R1) Attending Attestation Patient examined and case discussed with resident physician I have read the above note and agree with the assessment/plan as discussed with the I was involved in all medical decision making for this patient Milind Griffith M.D. (Milind Griffith MD) Problem List: (1) Cellulitis of breast Status: Acute Plan: Review of previous culture from 04/2016 shows pansensitive Staphylococcus - Repeat culture was obtained and Dr. Russo's office, we will follow-up culture - Blood cultures neg x 2 day. IV antibiotics to continue today: - Vancomycin IV q12 hours (06/13-06/16) - We'll transition to by mouth antibiotics, specifically Clindamycin 450mg q6hr and Levofloxacin 500mg daily to complete 14-day course of antibiotics Consult Plastic surgery - patient known to Dr. Russo, will follow recs - appreciate assistance with wound care management and follow-up. She plans for appointment SundayJune 19. Leukocytosis has resolved, patient afebrile >48hr. Pain controlled well with Kirklin 5-325mg tabs, prescription given. (2) Abdominal wall cellulitis Status: Acute Plan: Resolving. See plan above (3) Leukocytosis Status: [place]olved [place]: [place] [address] on admission, WNL since 06/14 -see plan above for continued treatment of infection (4) HTN (hypertension), benign Status: Chronic Plan: Blood pressure elevated on arrival, has normalized today Continue home losartan 50 mg daily -Vasotec 2.5 mg IV prn BP > 160/90, none required (5) History of breast cancer in female Status: Chronic Plan: Continue Tamoxifen (6) Anemia Status: Chronic Plan: Sickle cell trait, patient having mild microcytic anemia. Possible Fe def factor. -Continue Fe per home regimen (7) Nutrition, metabolism, and development symptoms Status: Acute Plan: Regular diet NS initially at 125 mls/hr, now by mouth hydration. Electrolytes: Monitor and replete as needed, follow daily labs Lovenox [address] Griffith. (Rosa Sandra MD R1) Problem Qualifiers (1) Anemia: Qualified Code: D63.8 - Anemia in other chronic diseases classified elsewhere Rosa Sandra MD R1 Jun 16, 2016 08:13 Milind Griffith MD Jun 16, 2016 16:38
[2016-06-16] MEDS ORDERED: HYDR-3583 PO (08:14)
[2016-06-16] MEDS ORDERED: PHARMACY ORDERED LAB XX ONE (09:15)
--- NOTE | 2016-06-16 09:37 | PD.PLAS.PN ---
Subjective Remarks Patient seen on 06/15/16. This is a 41 year old female, admitted for treatment of left breast and abdominal cellulitis. Fever and leukocytosis resolved. Erythema and induration noted to be improved. Objective Vital Signs Date Time Temp Pulse Resp B/P Pulse Ox O2 Delivery O2 Flow Rate FiO2 06/16/16 08:00 97.8 77 17 127/70 98 06/16/16 00:28 98.4 80 20 144/73 100 06/15/16 20:17 98.4 82 20 143/78 94 06/15/16 16:00 98.8 73 18 155/72 95 06/15/16 12:00 98.3 78 18 145/81 96 I/O 06/15/16 06/15/16 06/15/16 06/16/16 06/16/16 06/16/16 06:59 14:59 22:59 06:59 14:59 22:59 Intake Total 1308 ml 1554 ml 678 ml 980 ml Output Total 450 ml Balance 858 ml 1554 ml 678 ml 980 ml Intake Oral 240 ml 480 ml 480 ml 480 ml IV Total 1068 ml 1074 ml 198 ml 500 ml Output Urine Total 450 ml # Voids 3 2 2 # Bowel Movements 0 1 Laboratory Tests Test 06/15/16 06/16/16 11:36 04:07 Vancomycin Level Trough 8.1 White Blood Count 7.3 Red Blood Count 4.10 Hemoglobin 10.3 Hematocrit 32.3 Mean Corpuscular Volume 78.6 Mean Corpuscular Hemoglobin 25.1 Mean Corpuscular Hemoglobin 32.0 Concent Red Cell Distribution Width 15.5 Platelet Count 221 Mean Platelet Volume 8.6 Neutrophils (%) (Auto) 65.2 Lymphocytes (%) (Auto) 23.8 Monocytes (%) (Auto) 6.2 Eosinophils (%) (Auto) 3.8 Basophils (%) (Auto) 1.0 Neutrophils # (Auto) 4.8 Lymphocytes # (Auto) 1.7 Monocytes # (Auto) 0.5 Eosinophils # (Auto) 0.3 Basophils # (Auto) 0.1 CBC Comment DIFF FINAL Differential Comment Hematology Comments Sodium Level 142 Potassium Level 3.8 Chloride Level 108 Carbon Dioxide Level 26.0 Anion Gap 8 Blood Urea Nitrogen 7 Creatinine 0.57 Estimat Glomerular Filtration 141 Rate Random Glucose 107 Calcium Level 8.3 Date/Time Procedure Status Source Growth 06/13/16 20:06 Aerobic Blood Culture - Preliminary Resulted Blood Peripheral NO GROWTH IN 2 DAYS 06/13/16 20:06 Anaerobic Blood Culture - Preliminary Resulted Blood Peripheral NO GROWTH IN 2 DAYS 06/13/16 14:29 Gram Stain Received Abscess Breast Pending 06/13/16 14:29 Wound Culture Received Abscess Breast Pending 06/13/16 13:30 Gram Stain - Final Resulted Abscess Breast 06/13/16 13:30 Wound Culture - Preliminary Resulted Gram Negative Eugenio Staphylococcus Aureus Group B Beta Strep Group D Enterococcus Result Diagram: 06/16/1640606/16/16406 Exam Findings Dressing in place over the wound of the left breast. This was just changed by RN and is not removed. Erythema still present but appears to be improved from yesterday. Patient comfortable. Assessment and Plan Diagnosis: (1) Cellulitis of breast (2) Abdominal wall cellulitis Assessment and Plan Patient is improving. Continue with daily dressing changes. The exam, history, and the medical decision-making described in the above note were completed with the assistance of the mid-level provider. I reviewed and agree with the findings presented. I attest that I had a [id number] encounter with the patient on the same day, and personally performed and documented my assessment and findings in the medical record. Rola Russo M.D. Discharge Planning Patient should continue with daily dressing changes if discharged. Laura Olvera Jun 16, 2016 09:37
--- NOTE | 2016-06-16 10:00 | PD.PLAS.PN ---
Subjective Remarks Patient resting comfortably. She states that she may be discharged today after a dose of IV vancomycin around noon. Objective Vital Signs Date Time Temp Pulse Resp B/P Pulse Ox O2 Delivery O2 Flow Rate FiO2 06/16/16 08:00 97.8 77 17 127/70 98 06/16/16 00:28 98.4 80 20 144/73 100 06/15/16 20:17 98.4 82 20 143/78 94 06/15/16 16:00 98.8 73 18 155/72 95 06/15/16 12:00 98.3 78 18 145/81 96 I/O 06/15/16 06/15/16 06/15/16 06/16/16 06/16/16 06/16/16 07:00 15:00 23:00 07:00 15:00 23:00 Intake Total 1308 ml 1554 ml 678 ml 980 ml Output Total 450 ml Balance 858 ml 1554 ml 678 ml 980 ml Intake Oral 240 ml 480 ml 480 ml 480 ml IV Total 1068 ml 1074 ml 198 ml 500 ml Output Urine Total 450 ml # Voids 3 2 2 # Bowel Movements 0 1 Laboratory Tests Test 06/15/16 06/16/16 11:36 04:07 Vancomycin Level Trough 8.1 White Blood Count 7.3 Red Blood Count 4.10 Hemoglobin 10.3 Hematocrit 32.3 Mean Corpuscular Volume 78.6 Mean Corpuscular Hemoglobin 25.1 Mean Corpuscular Hemoglobin 32.0 Concent Red Cell Distribution Width 15.5 Platelet Count 221 Mean Platelet Volume 8.6 Neutrophils (%) (Auto) 65.2 Lymphocytes (%) (Auto) 23.8 Monocytes (%) (Auto) 6.2 Eosinophils (%) (Auto) 3.8 Basophils (%) (Auto) 1.0 Neutrophils # (Auto) 4.8 Lymphocytes # (Auto) 1.7 Monocytes # (Auto) 0.5 Eosinophils # (Auto) 0.3 Basophils # (Auto) 0.1 CBC Comment DIFF FINAL Differential Comment Hematology Comments Sodium Level 142 Potassium Level 3.8 Chloride Level 108 Carbon Dioxide Level 26.0 Anion Gap 8 Blood Urea Nitrogen 7 Creatinine 0.57 Estimat Glomerular Filtration 141 Rate Random Glucose 107 Calcium Level 8.3 Date/Time Procedure Status Source Growth 06/13/16 20:06 Aerobic Blood Culture - Preliminary Resulted Blood Peripheral NO GROWTH IN 2 DAYS 06/13/16 20:06 Anaerobic Blood Culture - Preliminary Resulted Blood Peripheral NO GROWTH IN 2 DAYS 06/13/16 14:29 Gram Stain Received Abscess Breast Pending 06/13/16 14:29 Wound Culture Received Abscess Breast Pending 06/13/16 13:30 Gram Stain - Final Resulted Abscess Breast 06/13/16 13:30 Wound Culture - Preliminary Resulted Gram Negative Eugenio Staphylococcus Aureus Group B Beta Strep Group D Enterococcus Result Diagram: 06/16/1640606/16/16406 Exam Findings Dressing in place over the wound of the left breast. Dressing and packing are removed. There is a small amount of clear drainage. No odor. Wound depth is 3.5cm. Assessment and Plan Diagnosis: (1) Cellulitis of breast (2) Abdominal wall cellulitis Assessment and Plan Patient is improving. Continue with daily dressing changes. The exam, history, and the medical decision-making described in the above note were completed with the assistance of the mid-level provider. I reviewed and agree with the findings presented. I attest that I had a [id number] encounter with the patient on the same day, and personally performed and documented my assessment and findings in the medical record. Rola Russo M.D. Discharge Planning Patient to continue with once or twice daily dressing changes when discharged. Instructions discussed with patient. Laura Olvera Jun 16, 2016 10:00
[2016-06-16] MEDS: diphenhydrAMINE HCL 25 MG CAP PO PRN (11:43)
[2016-06-16] MEDS: VANCOMYCIN INJ 2,250 MG in SODIUM CHLORID 0.9% 500 ML INJ 500 ML IV SCH (11:44)
[2016-06-16 12:00] VITALS: BP 133/79; PULSE 80; RESP 17; TEMP 96.8; O2SAT 98
[2016-06-16] MEDS ORDERED: CLIN1CAP5 PO ×2 (13:08→21:17)
[2016-06-16] MEDS ORDERED: LEVA500T PO (13:08)
--- NOTE | 2016-06-16 13:10 | HHI.DCPOC ---
Discharge Care Plan Diagnosis: (1) Cellulitis of breast Goals to Promote Your Health * To prevent worsening of your condition and complications * To maintain your health at the optimal level Directions to Meet Your Goals Take your medications as prescribed Follow your dietary instruction Follow activity as directed Keep your appointments as scheduled Take your immunizations and boosters as scheduled If your symptoms worsen call your PCP, if no PCP go to Urgent Care Center or Emergency Room Smoking is Dangerous to Your Health. Avoid second hand smoke Call the 24-hour hour crisis hotline for domestic abuse at Rosa Sandra MD R1 Jun 16, 2016 13:10
--- NOTE | 2016-06-16 16:51 | HHI.DS ---
Discharge Summary Admission Date Jun 13, 2016 at 17:07 Discharge Date: Jun 16, 2016 Admitting Diagnosis abd wall cellulitis,mastitis (1) Cellulitis of breast Diagnosis: Principal Plan: Review of previous culture from 04/2016 shows pansensitive Staphylococcus - Repeat culture was obtained and Dr. Russo's office, we will follow-up culture - Blood cultures neg x 2 day. IV antibiotics to continue today: - Vancomycin IV q12 hours (06/13-06/16) - We'll transition to by mouth antibiotics, specifically Clindamycin 450mg q6hr and Levofloxacin 500mg daily to complete 14-day course of antibiotics Consult Plastic surgery - patient known to Dr. Russo, will follow recs - appreciate assistance with wound care management and follow-up. She plans for appointment SundayJune 19. Leukocytosis has resolved, patient afebrile >48hr. Pain controlled well with [place] 5-325mg tabs, prescription given. (2) Abdominal wall cellulitis Diagnosis: Principal Plan: Resolving. See plan above (3) Leukocytosis Diagnosis: [place] [address] [place] admission, WNL since 06/14 -see plan above for continued treatment of infection (4) HTN (hypertension), benign Diagnosis: Secondary Plan: Blood pressure elevated on arrival, has normalized today Continue home losartan 50 mg daily -Vasotec 2.5 mg IV prn BP > 160/90, none required (5) History of breast cancer in female Diagnosis: Secondary Plan: Continue Tamoxifen (6) Anemia Diagnosis: Secondary Plan: Sickle cell trait, patient having mild microcytic anemia. Possible Fe def factor. -Continue Fe per home regimen [facility] Pl[facility] Surgery - Dr. Russo Brief History Patient is a 41 yo F with hx of breast ca, coming to hospital for redness/ swelling over left breast and abdomen. Started with fever, chills, n/v, body aches yesterday morning. Resolved with Zofran. Later noticed tenderness over the left breast at 10 pm. At 3 am, she rolled over in bed and noticed severe tenderness. This morning, she noticed that there was redness over the abdomen and took Clindamycin tabs that she had available at home. When she went to post surgical appt with Dr. Russo, she had wound culture taken and was advised to come to the ED. Patient intially having left mastectomy in Feb 2013, reports having multiple complications since initial procedure. Most recently in May 02, 2016 having left breast implant infection; had surgery with Dr. Lewis this next day to have excisional debridement of capsule of reconstructed left breast. At that time, the cultures grew staph. CBC/BMP: 06/16/16 0407 06/16/16 0407 Significant Findings Laboratory Tests Test 06/13/16 06/14/16 06/15/16 06/16/16 21:18 04:36 04:25 04:07 Lactic Acid Level 2.4 mmol/L (0.4-2.0) Red Blood Count 3.69 MIL/MM3 3.79 MIL/MM3 (4.00-5.30) (4.00-5.30) Hemoglobin 9.6 GM/DL 9.8 GM/DL 10.3 GM/DL (11.6-15.3) (11.6-15.3) (11.6-15.3) Hematocrit 28.9 % 29.7 % 32.3 % (35.0-46.0) (35.0-46.0) (35.0-46.0) Mean Corpuscular Volume 78.3 FL 78.3 FL 78.6 FL (80.0-100.0) (80.0-100.0) (80.0-100.0) Mean Corpuscular Hemoglobin 26.1 PG 25.7 PG 25.1 PG (27.0-34.0) (27.0-34.0) (27.0-34.0) Neutrophils (%) (Auto) 82.3 % 70.7 % (16.0-70.0) (16.0-70.0) Neutrophils # (Auto) 9.0 TH/MM3 (1.8-7.7) Random Glucose 111 MG/DL 107 MG/DL (74-106) (74-106) Calcium Level 8.3 MG/DL 8.3 MG/DL (8.5-10.1) (8.5-10.1) Eosinophils (%) (Auto) 4.2 % (0.0-4.0) Potassium Level 3.4 MEQ/L (3.5-5.1) Chloride Level 109 MEQ/L 108 MEQ/L (98-107) (98-107) Blood Urea Nitrogen 5 MG/DL (7-18) Creatinine 0.40 MG/DL (0.50-1.00) Imaging Last Impressions Breast Ultrasound 06/14/16 0000 Signed Impressions: Service Date/Time: Tuesday, June 14, 2016 11:24 - CONCLUSION: Diffuse subcutaneous edema without definite discrete fluid collection to suggest abscess. Clinical correlation is recommended. Maxx Jarrett MD PE at Discharge GENERAL: Well-appearing, well-developed -[place] female lying in bed in no acute distress. She is lying on her right side. SKIN: Left breast s/p mastectomy with area of fullness at 8:00, having area superior to nipple open but covered with gauze productive of minimal serosanguineous fluid. Erythema over breast and anterior thorax, area circumscribed with marker and significant less erythema today. NECK: Trachea midline. No JVD or lymphadenopathy. Supple, nontender, no meningeal signs. CARDIOVASCULAR: Regular rate and rhythm without murmurs, gallops, or rubs. RESPIRATORY: Clear to auscultation. Breath sounds equal bilaterally. No wheezes , rales, or rhonchi. GASTROINTESTINAL: Abdomen soft, non-tender, nondistended. MUSCULOSKELETAL: Extremities without clubbing, cyanosis, or edema. NEUROLOGICAL: Awake and alert. Cranial nerves II through XII intact. Hospital Course Patient with history breast cancer complicated by post-operative course after breast infections and rejection of implants. She presented with a one-day history of systemic symptoms suggestive of infection. She was empirically started on IV Vancomycin, for which she completed three days. Course was uncomplicated and cellulitis improved significantly. Wound cultures still pending at discharge. Blood cultures negative. She was discharged on 06/16 in stable condition which prescriptions for levofloxacin and clindamycin given wound culture so far polymicrobial infection to include gram negative rods. Pt Condition on Discharge: Stable Discharge Disposition: Discharge Home Discharge Instructions DIET: Follow Instructions for: As Tolerated, No Restrictions Activities you can perform: Regular-No Restrictions Follow up Referrals: Plastic Surgery with Rola Russo MD New Medications: Clindamycin (Clindamycin) 150 Mg Cap 450 MG PO Q6H Take one tablet every 6 hours (4 times per day) until gone. Infection #48 Ref 0 CAP Levofloxacin (Levaquin) 500 Mg Tab 500 MG PO DAILY Infection #11 Ref 0 TAB Hydrocodone-Acetaminophen (Hydrocodone-Acetaminophen) 10-325 mg Tab 1 TAB PO Q4H PAIN 6-10 #30 TAB Continued Medications: Ferrous Sulfate (Iron) 325 Mg Tab 325 MG PO DAILY Take Nutritional Supplement Ref 0 TAB Losartan (Cozaar) 50 Mg Tab 50 MG PO DAILY Blood Pressure Management #30 Ref 0 TAB Tamoxifen (Tamoxifen) 20 Mg Tab 20 MG PO BID Chemotherapy Management #60 Ref 0 TAB Rosa Sandra MD R1 Jun 16, 2016 16:51
[2016-06-17] MEDS ORDERED: PHARMACY ORDERED LAB XX ONE (11:45)
== END 2016-06-16 17:08 | disposition home or self-care (01) | DRG 600 ==
LOC: NEPC 14:03 → NEDA 17:07 → N07B 19:04
PROVIDERS: ADMIT Family Medicine; ATTEND Family Medicine
DX: N61.0 Mastitis without abscess (principal); L03.311 Cellulitis of abdominal wall; D57.1 Sickle-cell disease without crisis; I10 Essential (primary) hypertension; E87.6 Hypokalemia; D50.9 Iron deficiency anemia, unspecified; B95.61 Methicillin susceptible Staphylococcus aureus infection as the cause of diseases classified elsewhere; Z85.3 Personal history of malignant neoplasm of breast; Z92.3 Personal history of irradiation
CPT/HCPCS: 76642; 76937; 80048; 80202; 83605; 85025; 85610; 85730; 86403; 87040; 87070; 87077; 87147; 87186; 87205; 96365; 96366; J1650; J3370; J7030; J7040; J7050

== ENCOUNTER → 2017-01-03 | Day surgery (SDC) | payer OTHER ==
[~2017-01-03] MED LIST changes: +ACETAMINOPHEN 1000 MG/100 ML 100 ML IV ONE; +BUPIVACAINE/EPINEPHRINE 0.5% 50 ML VIAL ONE; +FERR1TAB36 PO; +LACTATED RINGER'S 1000 ML INJ 1,000 ML IV ONE; +LIDOCAINE 1%/EPINEPHrine 1:100,000 SOLN 50 ML VIAL ONE; +MIDAZOLAM HCL 2 MG/2 ML VIAL ONE; +ONDANSETRON HCL 4 MG/2 ML VIAL IV PUSH ONE; +PROPOFOL 200 MG/20 ML AMP IV ONE; +ceFAZolin INJ 1,000 MG VIAL ONE
--- NOTE | 2017-01-03 12:33 | TN ---
cc: ANSHUL LEWIS M.D. DATE OF SURGERY 01/03/2017 PREOPERATIVE DIAGNOSIS Previous history of breast cancer left side with previous mastectomy and reconstruction with growing mass in the reconstructed breast. POSTOPERATIVE DIAGNOSIS Previous history of breast cancer left side with previous mastectomy and reconstruction with growing mass in the reconstructed breast suspicious for recurrent cancer. PROCEDURE Wide radical excision of 5 cm mass with elliptical incision measuring 6 x 10 cm of the reconstructed left breast SURGEON Anshul Lewis MD PROCEDURE The patient taken to the operating room, placed in the supine position. After anesthesia, her left chest wall breast reconstruction site is prepped with Betadine. We make an elliptical incision oriented in a vertical fashion. She had had a previous muscle reconstruction and this muscle was lateral to what appears to be the recurrent tumor. Wide local excision is made after anesthetizing with a Marcaine solution. The elliptical incision is then sharply dissected free to the surrounding normal appearing adipose tissue. We did not encounter the muscle flap. The surrounding tissue looks normal. The adipose tissue is marked at 12 o'clock with a stitch for orientation. We then free up a little bit more flaps medially and laterally to allow closure. A second specimen was taken just superior to be assured of the superior margin and this is labeled as such. She had a indentation of the skin with excessive dimpling and this was removed with an elliptical incision as well. The area was then irrigated. We close the deep layer with 3-0 Vicryl and skin with interrupted 3-0 nylon. Sterile bandage was applied. The patient tolerated the procedure well and had no immediate postop complications. MD CARRIE Henao/REBECCA /12:18 PM /12:25 PM NADIRA
== END | disposition home or self-care (01) ==
LOC: ESDC 07:16
PROVIDERS: ATTEND Surgery
DX: N63.20 Unspecified lump in the left breast, unspecified quadrant (principal); Z85.3 Personal history of malignant neoplasm of breast; Z90.12 Acquired absence of left breast and nipple
CPT/HCPCS: 00400; 19120; 88307; 88341; 88342; J0131; J0690; J2250; J2405; J3010; J7120